=== PATIENT | female | born 1990 | race Caucasian/White ===

== ENCOUNTER 2017-04-19 19:36 | Inpatient (IN) | payer BC ==
[2017-04-19] MEDS ORDERED: Carboprost Tromethamine 250 MCG/1 ML Amp IM PRN (20:07)
[2017-04-19] MEDS ORDERED: Lidocaine 1% 50 ML MDV INJECT PRN (20:07)
[2017-04-19] MEDS ORDERED: Sodium Chloride 0.9% 2.5 ML Syringe FLUSH PRN (20:07)
[2017-04-19] MEDS ORDERED: Butorphanol 1 MG/ML SDV IVPUSH PRN (20:07)
[2017-04-19] MEDS ORDERED: Sodium Chloride 0.9% 10 ML Syringe FLUSH PRN (20:07)
[2017-04-19] MEDS ORDERED: Nalbuphine 10 MG/1 ML Vial IVPUSH PRN (20:07)
[2017-04-19] MEDS ORDERED: Misoprostol 200 MCG Tab PO PRN (20:07)
[2017-04-19] MEDS ORDERED: Misoprostol 25 MCG (1/4 of 100 MCG) Tab VAG PRN (20:07)
[2017-04-19] MEDS ORDERED: Water For Irrigation,Sterile 1,000 ML Container IRR PRN (20:07)
[2017-04-19] MEDS ORDERED: Terbutaline 1 MG/ML SDV SUBCUT PRN (20:07)
[2017-04-19] MEDS ORDERED: Methylergonovine 0.2 MG/1 ML Amp IM PRN (20:07)
[2017-04-19] MEDS: Lactated Ringers 1,000 ML IV SCH (20:15)
[2017-04-19] MEDS ORDERED: Misoprostol 25 MCG (1/4 of 100 MCG) Tab VAG SCH (20:15)
[2017-04-19] MEDS ORDERED: Oxytocin/Lactated Ringers 30 UNIT/500 ML BAG IV SCH ×2 (20:15)
[2017-04-20] MEDS: Lactated Ringers 1,000 ML IV SCH ×3 (02:37→09:04)
--- NOTE | 2017-04-20 03:04 | PCM.PREANE ---
Preanesthetic Assessment - Anesthesia/Transfusion/Family Hx Anesthesia History: Prior Anesthesia Without Reaction Transfusion History: No Prior Transfusion(s) - Review of Systems General: No Symptoms Pulmonary: No Symptoms Cardiovascular: No Symptoms Gastrointestinal: No Symptoms Neurological: No Symptoms Other: Reports: None - Physical Assessment Height: 5 ft 2 in Weight: 65.317 kg ASA Class: 2 Mental Status: Alert & Oriented x3 Airway Class: Mallampati = 2 Dentition: Reports: Normal Dentition Thyro-Mental Finger Breadths: 3 Mouth Opening Finger Breadths: 3 ROM/Head Extension: Full Lungs: Clear to Auscultation, Normal Respiratory Effort Cardiovascular: Regular Rate, Regular Rhythm - Lab Values: Laboratory Last Values WBC 16.55 K/uL (4.0-11.0) H 04/19/17 20:25 RBC 3.75 M/uL (4.30-5.90) L 04/19/17 20:25 Hgb 11.0 g/dL (12.0-16.0) L 04/19/17 20:25 Hct 33.6 % (36.0-46.0) L 04/19/17 20:25 MCV 89.6 fL (80.0-98.0) 04/19/17 20:25 MCH 29.3 pg (27.0-32.0) 04/19/17 20:25 MCHC 32.7 g/dL (31.0-37.0) 04/19/17 20:25 RDW Std Deviation 44.4 fl (28.0-62.0) 04/19/17 20:25 RDW Coeff of Elizabeth 14 % (11.0-15.0) 04/19/17 20:25 Plt Count 297 K/uL (150-400) 04/19/17 20:25 MPV 10.50 fL (7.40-12.00) 04/19/17 20:25 Nucleated RBC % 0.0 /100WBC 04/19/17 20:25 Nucleated RBCs # 0 K/uL 04/19/17 20:25 Blood Type O POSITIVE 04/19/17 20:25 Antibody Screen NEGATIVE 04/19/17 20:25 - Allergies Allergies/Adverse Reactions: Allergies Allergy/AdvReac Type Severity Reaction Status Date / Time No Known Allergies Allergy Verified 04/19/17 21:26 - Acknowledgements Anesthesia Type Planned: Epidural Pt an Appropriate Candidate for the Planned Anesthesia: Yes Alternatives and Risks of Anesthesia Discussed w Pt/Guardian: Yes Pt/Guardian Understands and Agrees with Anesthesia Plan: Yes PreAnesthesia Questionnaire - Past Health History Medical/Surgical History: Denies Medical/Surgical History HEENT History: Reports: None Cardiovascular History: Reports: None Respiratory History: Reports: None Gastrointestinal History: Reports: GERD Genitourinary History: Reports: None 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: : 1 Para: 0 LMP (Approximate): Musculoskeletal History: Reports: None Neurological History: Reports: None Psychiatric History: Reports: None Endocrine/Metabolic History: Reports: None Hematologic History: Reports: None Immunologic History: Reports: None Oncologic (Cancer) History: Reports: None Dermatologic History: Reports: None - Infectious Disease History Infectious Disease History: Reports: None - SUBSTANCE USE Smoking Status *Q: Never Smoker Recreational Drug Use History: No - CURRENT (IN HOUSE) MEDS Current Meds: Current Medications Butorphanol Tartrate (Stadol) 1 mg IVPUSH ASDIRECTED PRN PRN Reason: Pain Carboprost Tromethamine (Hemabate Ds) 250 mcg IM ASDIRECTED PRN PRN Reason: Post Hemorrhage Lactated Ringer's (Ringers, Lactated) 1,000 mls @ 150 mls/hr IV ASDIRECTED PEDRO LUIS Last Admin: 04/20/17 02:37 Dose: 150 mls/hr Oxytocin/Lactated Ringer's (Pitocin In Lr 30 Units/500 Ml) 30 unit in 500 mls @ 2 mls/hr IV TITRATE PEDRO LUIS; 2 MUNITS/MIN PRN Reason: Protocol Last Titration: 04/20/17 02:48 Dose: 2 munits/min, 2 mls/hr Lidocaine HCl (Xylocaine 1%) 50 ml INJECT .ONCE PRN PRN Reason: Laceration repair Methylergonovine Maleate (Methergine) 0.2 mg IM ASDIRECTED PRN PRN Reason: Post Hemorrhage Misoprostol (Cytotec) 200 mcg PO .ONCE PRN PRN Reason: Post Hemorrhage Misoprostol (Cytotec) 25 mcg VAG .ONCE PEDRO LUIS Misoprostol (Cytotec) 25 mcg VAG Q4H PRN PRN Reason: Cervical Ripening Stop: 04/21/17 00:08 Nalbuphine HCl (Nubain) 10 mg IVPUSH ASDIRECTED PRN PRN Reason: Pain (severe 7-10) Stop: 04/21/17 20:08 Sodium Chloride (Saline Flush) 10 ml FLUSH ASDIRECTED PRN PRN Reason: Keep Vein Open Sodium Chloride (Saline Flush) 2.5 ml FLUSH ASDIRECTED PRN PRN Reason: Keep Vein Open Sterile Water (Sterile Water For Irrigation) 1,000 ml IRR ASDIRECTED PRN PRN Reason: delivery Terbutaline Sulfate (Brethine) 0.25 mg SUBCUT ASDIRECTED PRN PRN Reason: Tacysystole Discontinued Medications Oxytocin/Lactated Ringer's (Pitocin In Lr 30 Units/500 Ml) 30 unit in 500 mls @ 999 mls/hr IV ASDIRECTED PEDRO LUIS PRN Reason: 999 MUNITS/MIN Stop: 04/19/17 20:46
[2017-04-20] MEDS ORDERED: fentaNYL 100 MCG/2 ML SDV ONE ×4 (03:09→11:44)
[2017-04-20] MEDS ORDERED: Ropivacaine HCl/PF 100 ML ONE (03:09)
[2017-04-20] MEDS ORDERED: Citric Acid/Sodium Citrate Solution 30 ML Cup PO ONE (10:43)
[2017-04-20] MEDS ORDERED: Bupivacaine 0.5% 10 ML SDV ONE (10:46)
[2017-04-20] MEDS ORDERED: Oxytocin 10 Units/1 ML SDV ONE (10:59)
[2017-04-20] MEDS ORDERED: Sodium Chloride 0.9% 20 ML ONE (11:01)
[2017-04-20] MEDS ORDERED: ceFAZolin 1 GM Vial ONE (11:01)
[2017-04-20] MEDS ORDERED: Midazolam 1 MG/ML 2 ML SDV ONE (11:05)
[2017-04-20] MEDS ORDERED: Propofol 200 MG/20 ML SDV ONE (11:06)
[2017-04-20] MEDS ORDERED: Ondansetron 4 MG/2 ML SDV ONE (11:14)
[2017-04-20] MEDS ORDERED: Morphine PF 10 MG/10 ML SDV ONE (11:25)
[2017-04-20] MEDS ORDERED: Methylergonovine 0.2 MG/1 ML Amp ONE (11:28)
[2017-04-20] MEDS ORDERED: Acetaminophen/oxyCODONE 325-5 MG Tab PO PRN ×2 (11:29→13:24)
[2017-04-20] MEDS ORDERED: Nalbuphine 10 MG/1 ML Vial IVPUSH PRN (11:29)
[2017-04-20] MEDS ORDERED: fentaNYL 100 MCG/2 ML SDV IVPUSH PRN (11:29)
[2017-04-20] MEDS ORDERED: Acetaminophen 1,000 MG in Premix Bag 1 BAG IV ONE (12:30)
[2017-04-20] MEDS ORDERED: Naloxone 0.4 MG/ML Syringe IVPUSH PRN (12:54)
[2017-04-20] MEDS ORDERED: Lanolin 100% Cream 7 GM Tube TOP PRN (13:24)
[2017-04-20] MEDS ORDERED: diphenhydrAMINE 50 MG/ML SDV IVPUSH PRN (13:24)
[2017-04-20] MEDS ORDERED: Bisacodyl 10 MG Supp RECTAL PRN (13:24)
[2017-04-20] MEDS ORDERED: Ondansetron 4 MG/2 ML SDV IV PRN (13:24)
[2017-04-20] MEDS ORDERED: Lactated Ringers 1,000 ML IV SCH (13:30)
[2017-04-20] MEDS: Ketorolac 30 MG/ML SDV IVPUSH SCH ×2 (13:57→19:33)
--- NOTE | 2017-04-20 14:39 | PCM.PNPP ---
- General Info Date of Service: 04/20/17 Admission Dx/Problem (Free Text): 26 yo P1 s/p primary for Arrest of Dilatation Subjective Update: Denies any complains , has good pain control Temp; 100.6 @ 230 - Patient Data Vital Signs - Most Recent: Last Vital Signs Temp 37 C 04/20/17 12:30 Pulse 92 04/20/17 13:05 Resp 9 L 04/20/17 13:05 BP 136/76 04/20/17 13:05 Pulse Ox 94 L 04/20/17 13:05 Weight - Most Recent: 65.317 kg I&O - Last 24 Hours: Intake & Output 04/19/17 04/20/17 04/20/17 22:59 06:59 14:59 Intake Total 1250 Output Total 250 Balance 1000 Lab Results - Last 24 Hours: Laboratory Results - last 24 hr 04/19/17 04/19/17 Range/Units 20:25 20:25 WBC 16.55 H (4.0-11.0) K/uL RBC 3.75 L (4.30-5.90) M/uL Hgb 11.0 L (12.0-16.0) g/dL Hct 33.6 L (36.0-46.0) % MCV 89.6 (80.0-98.0) fL MCH 29.3 (27.0-32.0) pg MCHC 32.7 (31.0-37.0) g/dL RDW Std Deviation 44.4 (28.0-62.0) fl RDW Coeff of Elizabeth 14 (11.0-15.0) % Plt Count 297 (150-400) K/uL MPV 10.50 (7.40-12.00) fL Nucleated RBC % 0.0 /100WBC Nucleated RBCs # 0 K/uL Blood Type O POSITIVE Antibody Screen NEGATIVE Med Orders - Current: Current Medications Bisacodyl (Dulcolax) 10 mg RECTAL .ONCE PRN PRN Reason: Constipation Butorphanol Tartrate (Stadol) 1 mg IVPUSH ASDIRECTED PRN PRN Reason: Pain Last Admin: 04/20/17 02:20 Dose: 1 mg Carboprost Tromethamine (Hemabate Ds) 250 mcg IM ASDIRECTED PRN PRN Reason: Post Hemorrhage Diphenhydramine HCl (Benadryl) 25 mg IVPUSH Q6H PRN PRN Reason: Itching or Nausea Docusate Sodium (Colace) 100 mg PO BID [facility] Emollient Ointment (Lansinoh Hpa) 0 gm TOP ASDIRECTED PRN PRN Reason: Sore Nipples Fentanyl (Sublimaze) 50 mcg IVPUSH Q5M PRN PRN Reason: Pain (severe 7-10) Stop: 04/21/17 11:30 Lactated Ringer's (Ringers, Lactated) 1,000 mls @ 150 mls/hr IV ASDIRECTED [facility] Last Admin: 04/20/17 09:04 Dose: 150 mls/hr Oxytocin/Lactated Ringer's (Pitocin In Lr 30 Units/500 Ml) 30 unit in 500 mls @ 2 mls/hr IV TITRATE PEDRO LUIS; 2 MUNITS/MIN PRN Reason: Protocol Last Titration: 04/20/17 08:43 Dose: 4 munits/min, 4 mls/hr Lactated Ringer's (Ringers, Lactated) 1,000 mls @ 125 mls/hr IV ASDIRECTED [facility] Ampicillin Sodium/Sulbactam (Sodium 3 gm/ Sodium Chloride) 100 mls @ 200 mls/ hr IV Q6H [facility] Stop: 04/21/17 14:45 Ibuprofen (Motrin) 800 mg PO Q8H PRN PRN Reason: mild pain or fever Ketorolac Tromethamine (Toradol) 30 mg IVPUSH Q6H [facility] Stop: 04/21/17 13:31 Last Admin: 04/20/17 13:57 Dose: 30 mg Lidocaine HCl (Xylocaine 1%) 50 ml INJECT .ONCE PRN PRN Reason: Laceration repair Methylergonovine Maleate (Methergine) 0.2 mg IM ASDIRECTED PRN PRN Reason: Post Hemorrhage Misoprostol (Cytotec) 200 mcg PO .ONCE PRN PRN Reason: Post Hemorrhage Misoprostol (Cytotec) 25 mcg VAG .ONCE PEDRO LUIS Misoprostol (Cytotec) 25 mcg VAG Q4H PRN PRN Reason: Cervical Ripening Stop: 04/21/17 00:08 Nalbuphine HCl (Nubain) 10 mg IVPUSH ASDIRECTED PRN PRN Reason: Pain (severe 7-10) Stop: 04/21/17 20:08 Nalbuphine HCl (Nubain) 5 mg IVPUSH Q3H PRN PRN Reason: Pruritis Stop: 04/21/17 11:30 Naloxone HCl (Narcan) 0.4 mg IVPUSH ONETIME PRN PRN Reason: Respiratory Depression Ondansetron HCl (Zofran) 4 mg IV Q4H PRN PRN Reason: Nausea/Vomiting Oxycodone/Acetaminophen (Percocet 325-5 Mg) 1 tab PO ONETIME PRN PRN Reason: Pain (moderate 4-6) Oxycodone/Acetaminophen (Percocet 325-5 Mg) 2 tab PO Q4H PRN PRN Reason: Pain (moderate 4-6) Sodium Chloride (Saline Flush) 10 ml FLUSH ASDIRECTED PRN PRN Reason: Keep Vein Open Sodium Chloride (Saline Flush) 2.5 ml FLUSH ASDIRECTED PRN PRN Reason: Keep Vein Open Sterile Water (Sterile Water For Irrigation) 1,000 ml IRR ASDIRECTED PRN PRN Reason: delivery Terbutaline Sulfate (Brethine) 0.25 mg SUBCUT ASDIRECTED PRN PRN Reason: Tacysystole Discontinued Medications Bupivacaine HCl (Sensorcaine-Mpf 0.5%) Confirm Administered Dose 20 ml .ROUTE .STK-MED ONE Stop: 04/20/17 10:47 Last Admin: 04/20/17 12:04 Dose: Not Given Cefazolin Sodium (Ancef) Confirm Administered Dose 1 gm .ROUTE .STK-MED ONE Stop: 04/20/17 11:02 Citric Acid/Sodium Citrate (Bicitra Solution) 30 ml PO ONETIME ONE Stop: 04/20/17 10:44 Last Admin: 04/20/17 10:52 Dose: 30 ml Fentanyl (Sublimaze) Confirm Administered Dose 100 mcg .ROUTE .STK-MED ONE Stop: 04/20/17 03:10 Last Admin: 04/20/17 08:17 Dose: Not Given Fentanyl (Sublimaze) Confirm Administered Dose 100 mcg .ROUTE .STK-MED ONE Stop: 04/20/17 11:06 Fentanyl (Sublimaze) Confirm Administered Dose 100 mcg .ROUTE .STK-MED ONE Stop: 04/20/17 11:24 Fentanyl (Sublimaze) Confirm Administered Dose 100 mcg .ROUTE .STK-MED ONE Stop: 04/20/17 11:45 Oxytocin/Lactated Ringer's (Pitocin In Lr 30 Units/500 Ml) 30 unit in 500 mls @ 999 mls/hr IV ASDIRECTED PEDRO LUIS PRN Reason: 999 MUNITS/MIN Stop: 04/19/17 20:46 Last Admin: 04/20/17 12:03 Dose: Not Given Ropivacaine (Naropin 0.2%) Confirm Administered Dose 100 mls @ as directed .ROUTE .STK-MED ONE Stop: 04/20/17 03:10 Last Admin: 04/20/17 08:17 Dose: Not Given Sodium Chloride (Normal Saline) Confirm Administered Dose 20 mls @ as directed .ROUTE .STK-MED ONE Stop: 04/20/17 11:02 Acetaminophen 1,000 mg/ Premix 100 mls @ 400 mls/hr IV NOW ONE Stop: 04/20/17 12:44 Last Admin: 04/20/17 12:54 Dose: Not Given Acetaminophen (Ofirmev) Confirm Administered Dose 100 mls @ as directed IV .STK- MED ONE Stop: 04/20/17 12:19 Methylergonovine Maleate (Methergine) Confirm Administered Dose 0.2 mg .ROUTE .STK-MED ONE Stop: 04/20/17 11:29 Midazolam HCl (Versed 1 Mg/Ml) Confirm Administered Dose 2 mg .ROUTE .STK-MED ONE Stop: 04/20/17 11:06 Morphine Sulfate (Duramorph Pf) Confirm Administered Dose 10 mg .ROUTE .STK-MED ONE Stop: 04/20/17 11:26 Ondansetron HCl (Zofran) Confirm Administered Dose 4 mg .ROUTE .STK-MED ONE Stop: 04/20/17 11:15 Oxytocin (Pitocin) Confirm Administered Dose 20 unit .ROUTE .STK-MED ONE Stop: 04/20/17 11:00 Propofol (Diprivan 20 Ml) Confirm Administered Dose 200 mg .ROUTE .STK-MED ONE Stop: 04/20/17 11:07 - Infant Interaction Support Person: - Recovery Exam Lochia Amount: Scant Lochia Color: Rubra/Red Perineum Description: Edematous - Problem List & Annotations (1) delivery delivered SNOMED Code(s): 450640254 Code(s): O82 - ENCOUNTER FOR DELIVERY WITHOUT INDICATION Status: Acute Priority: Low Current Visit: Yes Onset Date: ~04/20/17 - Problem List Review Problem List Initiated/Reviewed/Updated: Yes - My Orders Last 24 Hours: My Active Orders 04/19/17 20:07 Patient Status [ADT] Routine Communication Order [RC] ASDIRECTED Communication Order [RC] ASDIRECTED Communication Order [RC] ASDIRECTED May Shower [RC] ASDIRECTED Notify Provider [RC] PRN Notify Provider [RC] PRN Notify Provider [RC] PRN Oxygen Therapy [RC] ASDIRECTED Up ad Helen [RC] ASDIRECTED Vital Signs [RC] PER UNIT ROUTINE Butorphanol [Stadol] 1 mg IVPUSH ASDIRECTED PRN Carboprost Tromethamine [Hemabate DS] 250 mcg IM ASDIRECTED PRN Lidocaine 1% [Xylocaine 1%] 50 ml INJECT .ONCE PRN Methylergonovine [Methergine] 0.2 mg IM ASDIRECTED PRN Misoprostol [Cytotec] 200 mcg PO .ONCE PRN Misoprostol [Cytotec] 25 mcg VAG Q4H PRN Nalbuphine [Nubain] 10 mg IVPUSH ASDIRECTED PRN Sodium Chloride 0.9% [Saline Flush] 10 ml FLUSH ASDIRECTED PRN Sodium Chloride 0.9% [Saline Flush] 2.5 ml FLUSH ASDIRECTED PRN Terbutaline [Brethine] 0.25 mg SUBCUT ASDIRECTED PRN Water For Irrigation,Sterile [Sterile Water for Irrigation] 1,000 ml IRR ASDIRECTED PRN Scalp Electrode [WOMSER] Per Unit Routine Peripheral IV Insertion Adult [OM.PC] Routine 04/19/17 20:15 Lactated Ringers [Ringers, Lactated] 1,000 ml IV ASDIRECTED Misoprostol [Cytotec] 25 mcg VAG .ONCE Oxytocin/Lactated Ringers [Pitocin in LR 30 Units/500 ML] 30 unit in 500 ml IV TITRATE Medication Administration Instruction [OM.PC] Q3H 04/20/17 13:24 Notify Provider Intake and Out [RC] ASDIRECTED Notify Provider Vital Signs [RC] ASDIRECTED Acetaminophen/oxyCODONE [Percocet 325-5 MG] 2 tab PO Q4H PRN Bisacodyl [Dulcolax] 10 mg RECTAL .ONCE PRN Ibuprofen [Motrin] 800 mg PO Q8H PRN Lanolin [Lansinoh HPA] See Dose Instructions TOP ASDIRECTED PRN Ondansetron [Zofran] 4 mg IV Q4H PRN diphenhydrAMINE [Benadryl] 25 mg IVPUSH Q6H PRN Resuscitation Status Routine 04/20/17 13:25 Ambulate [RC] PER UNIT ROUTINE Antiembolic Devices [RC] PER UNIT ROUTINE Communication Order [RC] PER UNIT ROUTINE Communication Order [RC] PER UNIT ROUTINE Communication Order [RC] Per Unit Routine May Shower [RC] ASDIRECTED RT Incentive Spirometry [RC] Q2HWA Vital Signs [RC] PER UNIT ROUTINE Assess Lochia [WOMSER] Per Unit Routine Assess Uterine Involution [WOMSER] Per Unit Routine Breast Pump [WOMSER] Per Unit Routine Peripheral IV Discontinue [OM.PC] Routine Sequential Compression Device [OM.PC] Per Unit Routine 04/20/17 13:30 Ketorolac [Toradol] 30 mg IVPUSH Q6H Lactated Ringers [Ringers, Lactated] 1,000 ml IV ASDIRECTED 04/20/17 14:45 Ampicillin/Sulbactam Na [Unasyn] 3 gm Sodium Chloride 0.9% [Normal Saline] 100 ml IV Q6H 04/20/17 21:00 Docusate Sodium [Colace] 100 mg PO BID 04/20/17 Breakfast Clear Liquid Diet [DIET] 04/20/17 Dinner Regular Diet [DIET] 04/21/17 05:11 HEMOGLOBIN/HEMATOCRIT,HH [HEME] Timed - Assessment Assessment:: 26 yo P0D 0 , s/p Primary LTCS - with Fever 100.6 Plan: Unasyn for 24 hrs VSS Pain control
[2017-04-20] MEDS: Ampicillin/Sulbactam Na 3 GM in Sodium Chloride 0.9% 100 ML IV SCH ×2 (15:26→21:00)
[2017-04-21] MEDS: Ketorolac 30 MG/ML SDV IVPUSH SCH ×3 (01:30→14:02)
--- NOTE | 2017-04-21 01:58 | PCM.SN ---
- Free Text/Narrative Note: Informed by nurse that patient dressing is soaked. Patient seen at bedside she is Dressing inspected moderately soaked ( bloody), complete dressing removed with steristrips and new dressing placed Incision examined for any disharge from incision. No discharge noted. Firm dressing reapplied.
[2017-04-21] MEDS: Ampicillin/Sulbactam Na 3 GM in Sodium Chloride 0.9% 100 ML IV SCH (03:07)
[2017-04-21 05:25] LABS: CHLORIDE,CL 108 mmol/L (98-110); SODIUM,NA 139 mmol/L (136-146)
[2017-04-21] MEDS: Docusate Sodium 100 MG Cap PO SCH (08:59)
[2017-04-21] MEDS ORDERED: Ampicillin/Sulbactam Na 3 GM in Sodium Chloride 0.9% 100 ML IV SCH (09:15)
--- NOTE | 2017-04-21 11:30 | PCM.POSTAN ---
POST ANESTHESIA ASSESSMENT - MENTAL STATUS Mental Status: Alert, Oriented - RESPIRATORY Respiratory Status: Respiratory Rate WNL, Airway Patent, O2 Saturation Stable - CARDIOVASCULAR CV Status: Pulse Rate WNL, Blood Pressure Stable - GASTROINTESTINAL GI Status: No Symptoms - PAIN Pain Score: 1 - POST OP HYDRATION Hydration Status: Adequate & Stable
--- NOTE | 2017-04-21 11:30 | PCM48HPAN ---
Post Anesthesia Note - EVALUATION WITHIN 48HRS OF ANESTHETIC Vital Signs in Normal Range: Yes Patient Participated in Evaluation: Yes Respiratory Function Stable: Yes Airway Patent: Yes Cardiovascular Function Stable: Yes Hydration Status Stable: Yes Pain Control Satisfactory: Yes Nausea and Vomiting Control Satisfactory: Yes Mental Status Recovered: Yes
--- NOTE | 2017-04-21 11:50 | PCM.PNPP ---
- General Info Date of Service: 04/21/17 Admission Dx/Problem (Free Text): 26 uo P1 s/p [facility] for Arrest of Dilatation Subjective Update: Patient seen at bedside , denies any complains this morning. Patient is ambulating , Has good pain control Voiding and tolerating regular diet. I/O= 2240/1625 H/H:- 7.6/23.0 , BMP;- 139/3.9 ; 108/26;7/0.6 Functional Status: Reports: Pain Controlled, Tolerating Diet, Ambulating, Urinating - Review of Systems General: Reports: No Symptoms HEENT: Reports: No Symptoms Pulmonary: Reports: No Symptoms Cardiovascular: Reports: No Symptoms Gastrointestinal: Reports: No Symptoms Genitourinary: Reports: No Symptoms Musculoskeletal: Reports: No Symptoms Skin: Reports: No Symptoms Neurological: Reports: No Symptoms Psychiatric: Reports: No Symptoms - General Info Date of Service: 04/21/17 - Patient Data Vital Signs - Most Recent: Last Vital Signs Temp 37.1 C 04/21/17 04:00 Pulse 98 04/21/17 09:59 Resp 18 04/21/17 11:00 BP 117/64 04/21/17 09:59 Pulse Ox 99 04/21/17 11:00 Weight - Most Recent: 65.317 kg I&O - Last 24 Hours: Intake & Output 04/20/17 04/21/17 04/21/17 22:59 06:59 14:59 Intake Total 240 750 Output Total 275 1100 850 Balance -35 -350 -850 Lab Results - Last 24 Hours: Laboratory Results - last 24 hr 04/21/17 04/21/17 Range/Units 04:45 04:45 Hgb 7.6 L (12.0-16.0) g/dL Hct 23.0 L (36.0-46.0) % Sodium 139 (136-146) mmol/L Potassium 3.9 (3.5-5.1) mmol/L Chloride 108 (98-110) mmol/L Carbon Dioxide 26 (21-31) mmol/L BUN 7 (6.0-23.0) mg/dL Creatinine 0.6 (0.6-1.5) mg/dL Est Cr Clr Drug Dosing 111.39 mL/min Estimated GFR (MDRD) > 60.0 ml/min Glucose 78 (60-110) mg/dL Calcium 7.7 L (8.8-10.8) mg/dL Med Orders - Current: Current Medications Bisacodyl (Dulcolax) 10 mg RECTAL .ONCE PRN PRN Reason: Constipation Diphenhydramine HCl (Benadryl) 25 mg IVPUSH Q6H PRN PRN Reason: Itching or Nausea Docusate Sodium (Colace) 100 mg PO BID [facility] Last Admin: 04/21/17 08:59 Dose: 100 mg Emollient Ointment (Lansinoh Hpa) 0 gm TOP ASDIRECTED PRN PRN Reason: Sore Nipples Oxytocin/Lactated Ringer's (Pitocin In Lr 30 Units/500 Ml) 30 unit in 500 mls @ 2 mls/hr IV TITRATE [facility]EDRO LU[facility]; 2 MUNITS/MIN PRN Reason: Protocol Last Titration: 04/20/17 08:43 Dose: 4 munits/min, 4 mls/hr Lactated Ringer's (Ringers, Lactated) 1,000 mls @ 125 mls/hr IV ASDIRECTED [facility] Last Admin: 04/21/17 09:02 Dose: 125 mls/hr Ibuprofen (Motrin) 800 mg PO Q8H PRN PRN Reason: mild pain or fever Ketorolac Tromethamine (Toradol) 30 mg IVPUSH Q6H [facility] Stop: 04/21/17 13:31 Last Admin: 04/21/17 07:31 Dose: 30 mg Misoprostol (Cytotec) 25 mcg VAG .ONCE PEDRO LUIS Naloxone HCl (Narcan) 0.4 mg IVPUSH ONETIME PRN PRN Reason: Respiratory Depression Ondansetron HCl (Zofran) 4 mg IV Q4H PRN PRN Reason: Nausea/Vomiting Oxycodone/Acetaminophen (Percocet 325-5 Mg) 1 tab PO ONETIME PRN PRN Reason: Pain (moderate 4-6) Oxycodone/Acetaminophen (Percocet 325-5 Mg) 2 tab PO Q4H PRN PRN Reason: Pain (moderate 4-6) Sodium Chloride (Saline Flush) 10 ml FLUSH ASDIRECTED PRN PRN Reason: Keep Vein Open Sodium Chloride (Saline Flush) 2.5 ml FLUSH ASDIRECTED PRN PRN Reason: Keep Vein Open Terbutaline Sulfate (Brethine) 0.25 mg SUBCUT ASDIRECTED PRN PRN Reason: Tacysystole Discontinued Medications Bupivacaine HCl (Sensorcaine-Mpf 0.5%) Confirm Administered Dose 20 ml .ROUTE .STK-MED ONE Stop: 04/20/17 10:47 Last Admin: 04/20/17 12:04 Dose: Not Given Butorphanol Tartrate (Stadol) 1 mg IVPUSH ASDIRECTED PRN PRN Reason: Pain Last Admin: 04/20/17 02:20 Dose: 1 mg Carboprost Tromethamine (Hemabate Ds) 250 mcg IM ASDIRECTED PRN PRN Reason: Post Hemorrhage Cefazolin Sodium (Ancef) Confirm Administered Dose 1 gm .ROUTE .STK-MED ONE Stop: 04/20/17 11:02 Citric Acid/Sodium Citrate (Bicitra Solution) 30 ml PO ONETIME ONE Stop: 04/20/17 10:44 Last Admin: 04/20/17 10:52 Dose: 30 ml Fentanyl (Sublimaze) Confirm Administered Dose 100 mcg .ROUTE .STK-MED ONE Stop: 04/20/17 03:10 Last Admin: 04/20/17 08:17 Dose: Not Given Fentanyl (Sublimaze) Confirm Administered Dose 100 mcg .ROUTE .STK-MED ONE Stop: 04/20/17 11:06 Fentanyl (Sublimaze) Confirm Administered Dose 100 mcg .ROUTE .STK-MED ONE Stop: 04/20/17 11:24 Fentanyl (Sublimaze) 50 mcg IVPUSH Q5M PRN PRN Reason: Pain (severe 7-10) Stop: 04/21/17 11:30 Fentanyl (Sublimaze) Confirm Administered Dose 100 mcg .ROUTE .STK-MED ONE Stop: 04/20/17 11:45 Lactated Ringer's (Ringers, Lactated) 1,000 mls @ 150 mls/hr IV ASDIRECTED [facility] Last Admin: 04/20/17 09:04 Dose: 150 mls/hr Oxytocin/Lactated Ringer's (Pitocin In Lr 30 Units/500 Ml) 30 unit in 500 mls @ 999 mls/hr IV ASDIRECTED [facility] PRN Reason: 999 MUNITS/MIN Stop: 04/19/17 20:46 Last Admin: 04/20/17 12:03 Dose: Not Given Ropivacaine (Naropin 0.2%) Confirm Administered Dose 100 mls @ as directed .ROUTE .STK-MED ONE Stop: 04/20/17 03:10 Last Admin: 04/20/17 08:17 Dose: Not Given Sodium Chloride (Normal Saline) Confirm Administered Dose 20 mls @ as directed .ROUTE .STK-MED ONE Stop: 04/20/17 11:02 Acetaminophen 1,000 mg/ Premix 100 mls @ 400 mls/hr IV NOW ONE Stop: 04/20/17 12:44 Last Admin: 04/20/17 12:54 Dose: Not Given Acetaminophen (Ofirmev) Confirm Administered Dose 100 mls @ as directed IV .STK- MED ONE Stop: 04/20/17 12:19 Ampicillin Sodium/Sulbactam (Sodium 3 gm/ Sodium Chloride) 100 mls @ 200 mls/ hr IV Q6H [facility] Stop: 04/21/17 15:01 Last Admin: 04/21/17 03:07 Dose: 200 mls/hr Ampicillin Sodium/Sulbactam (Sodium 3 gm/ Sodium Chloride) 100 mls @ 200 mls/ hr IV Q6H [facility] Stop: 04/21/17 09:44 Last Admin: 04/21/17 09:12 Dose: 200 mls/hr Lidocaine HCl (Xylocaine 1%) 50 ml INJECT .ONCE PRN PRN Reason: Laceration repair Methylergonovine Maleate (Methergine) 0.2 mg IM ASDIRECTED PRN PRN Reason: Post Hemorrhage Methylergonovine Maleate (Methergine) Confirm Administered Dose 0.2 mg .ROUTE .STK-MED ONE Stop: 04/20/17 11:29 Midazolam HCl (Versed 1 Mg/Ml) Confirm Administered Dose 2 mg .ROUTE .STK-MED ONE Stop: 04/20/17 11:06 Misoprostol (Cytotec) 200 mcg PO .ONCE PRN PRN Reason: Post Hemorrhage Misoprostol (Cytotec) 25 mcg VAG Q4H PRN PRN Reason: Cervical Ripening Stop: 04/21/17 00:08 Morphine Sulfate (Duramorph Pf) Confirm Administered Dose 10 mg .ROUTE .STK-MED ONE Stop: 04/20/17 11:26 Nalbuphine HCl (Nubain) 10 mg IVPUSH ASDIRECTED PRN PRN Reason: Pain (severe 7-10) Stop: 04/21/17 20:08 Nalbuphine HCl (Nubain) 5 mg IVPUSH Q3H PRN PRN Reason: Pruritis Stop: 04/21/17 11:30 Ondansetron HCl (Zofran) Confirm Administered Dose 4 mg .ROUTE .STK-MED ONE Stop: 04/20/17 11:15 Oxytocin (Pitocin) Confirm Administered Dose 20 unit .ROUTE .STK-MED ONE Stop: 04/20/17 11:00 Propofol (Diprivan 20 Ml) Confirm Administered Dose 200 mg .ROUTE .STK-MED ONE Stop: 04/20/17 11:07 Sterile Water (Sterile Water For Irrigation) 1,000 ml IRR ASDIRECTED PRN PRN Reason: delivery - Interaction Infant Feeding: Breastfed ; Nursed Well Support Person: - Recovery Exam Fundal Tone: Firm Fundal Level: 1 Fingerbreadths Below Umbilicus Fundal Placement: Midline Lochia Amount: Small Lochia Color: Rubra/Red Perineum Description: Intact, Minimal Bruising/Swelling Episiotomy/Laceration: Approximated Bladder Status: Voiding Urinary Elimination: Indwelling Catheter - Exam General: Alert Lungs: Clear to Auscultation Cardiovascular: Regular Rate, Regular Rhythm GI/Abdominal Exam: Normal Bowel Sounds, Soft, No Distention, Other (Pfannestiel skin incision with wound dressing in place , clean , dry and intact . Uterus is firm and contracted about 20 week , minimal lochia ) Extremities: No Pedal Edema Wound/Incisions: No Drainage - Problem List & Annotations (1) delivery delivered SNOMED Code(s): 493871398 Code(s): O82 - ENCOUNTER FOR DELIVERY WITHOUT INDICATION Status: Acute Priority: Low Current Visit: Yes Onset Date: ~04/20/17 - Problem List Review Problem List Initiated/Reviewed/Updated: Yes - My Orders Last 24 Hours: My Active Orders 04/20/17 13:24 Notify Provider Intake and Out [RC] ASDIRECTED Notify Provider Vital Signs [RC] ASDIRECTED Acetaminophen/oxyCODONE [Percocet 325-5 MG] 2 tab PO Q4H PRN Bisacodyl [Dulcolax] 10 mg RECTAL .ONCE PRN Ibuprofen [Motrin] 800 mg PO Q8H PRN Lanolin [Lansinoh HPA] See Dose Instructions TOP ASDIRECTED PRN Ondansetron [Zofran] 4 mg IV Q4H PRN diphenhydrAMINE [Benadryl] 25 mg IVPUSH Q6H PRN Resuscitation Status Routine 04/20/17 13:25 Ambulate [RC] PER UNIT ROUTINE Antiembolic Devices [RC] Q8H Communication Order [RC] PER UNIT ROUTINE Communication Order [RC] PER UNIT ROUTINE Communication Order [RC] Per Unit Routine May Shower [RC] ASDIRECTED RT Incentive Spirometry [RC] Q2HWA Vital Signs [RC] PER UNIT ROUTINE Assess Lochia [WOMSER] Per Unit Routine Assess Uterine Involution [WOMSER] Per Unit Routine Breast Pump [WOMSER] Per Unit Routine Peripheral IV Discontinue [OM.PC] Routine Sequential Compression Device [OM.PC] Per Unit Routine 04/20/17 13:30 Ketorolac [Toradol] 30 mg IVPUSH Q6H Lactated Ringers [Ringers, Lactated] 1,000 ml IV ASDIRECTED 04/20/17 21:00 Docusate Sodium [Colace] 100 mg PO BID 04/20/17 Dinner Regular Diet [DIET] - Assessment Assessment:: 26 yo P0D 1 , s/p [facility] POD 1, with Fever of 100.6 > 10 hrs afebrile - stable Plan: Unasyn given for 24 hrs VSS Pain control as needed Encourage ambulation Continue Will remove dressing tomorrow Possible discharge tomorrow - Plan Plan:: as above
[2017-04-21] MEDS: Ibuprofen 800 MG Tab PO PRN (20:17)
[2017-04-21] MEDS ORDERED: Ampicillin 500 MG in Water For Injection, Sterile 17 ML IV SCH (21:45)
[2017-04-21] MEDS ORDERED: Clindamycin Phosphate in D5W 900 MG in Premix Bag 1 BAG IV SCH ×2 (22:00)
--- NOTE | 2017-04-21 22:27 | PCM.SN ---
- Free Text/Narrative Note: Informed by nurse that patient had a temperature of 101 @ 8pm. Patient seen at bedside she denies any problems , denies SOB , cough , she is ambulating , voiding and tolerating regular diet VSS: Temp:- 38.3 , HR ; 122 , Osat:- 98% on room air R;- 19 , BP:- 108/65 EXam;- General;- NAD Chest:- Clear to auscultation Bilaterally Breast: Engorgement of left breast Heart:- S1 S2 no murmurs Abdomen: Pfannestiel skin incision with wound dressing in place c/d/i /, Uterus is firm contracted , non tender . has appropriate incisional tenderness Lochia minimal Extremities; No pedal edema A/P 26yo P1 s/p [facility] for arrest of Dilatation with Postop fever (probably secondary to breast engorgment) 1. Analgesic for symptomatic relief of fever 2. Encourage breast feeding and pumping for engorgment 3. Ampicillin/ Gentamicin and Clindamycin 4. Urine culture , CBC , Blood culture , Chest Xray 5. Pain control PRN 6 Vital signs as per unit protocol
[2017-04-21] MEDS: Clindamycin Phosphate in D5W 900 MG in Premix Bag 1 BAG IV SCH ×2 (23:55)
[2017-04-22] MEDS: Iron Polysaccharides Complex 150 MG Cap PO SCH ×2 (00:39→10:08)
[2017-04-22] MEDS: Ascorbic Acid 500 MG Tab PO SCH ×2 (00:39→10:21)
[2017-04-22] MEDS: Docusate Sodium 100 MG Cap PO SCH ×3 (07:18→22:10)
[2017-04-22] MEDS: Clindamycin Phosphate in D5W 900 MG in Premix Bag 1 BAG IV SCH ×4 (08:13→16:03)
--- NOTE | 2017-04-22 10:09 | PCM.PNPP ---
- General Info Date of Service: 04/22/17 Admission Dx/Problem (Free Text): 26 uo P1 s/p [facility] for Arrest of Dilatation with fever Subjective Update: Patient seen at bedside , denies any complains this morning. Patient is ambulating , Has good pain control Voiding and tolerating regular diet. she has had a bowel movement Patient had a temperature of 101 @ 8.17pm ( 04/21) , no temperature spike since then . Patient with Hb of 7.0 , denies fatigue , dizziness , palpitation , she is ambulating without symptoms. Normal lochia WBC: 16.5 --> 14.34 H/H : 11 --> 7.0 CXR - minimal pleural effusion Functional Status: Reports: Pain Controlled, Tolerating Diet, Ambulating, Urinating - Review of Systems General: Reports: No Symptoms HEENT: Reports: No Symptoms Pulmonary: Reports: No Symptoms Cardiovascular: Reports: No Symptoms Gastrointestinal: Reports: No Symptoms Genitourinary: Reports: No Symptoms Musculoskeletal: Reports: No Symptoms Skin: Reports: No Symptoms Neurological: Reports: No Symptoms Psychiatric: Reports: No Symptoms - General Info Date of Service: 04/22/17 - Patient Data Vital Signs - Most Recent: Last Vital Signs Temp 36.9 C 04/22/17 07:45 Pulse 97 04/22/17 07:30 Resp 17 04/22/17 07:30 BP 109/62 04/22/17 07:30 Pulse Ox 100 04/22/17 07:30 Weight - Most Recent: 65.317 kg Lab Results - Last 24 Hours: Laboratory Results - last 24 hr 04/21/17 Range/Units 21:55 WBC 14.34 H (4.0-11.0) K/uL RBC 2.38 L (4.30-5.90) M/uL Hgb 7.0 L (12.0-16.0) g/dL Hct 21.7 L (36.0-46.0) % MCV 91.2 (80.0-98.0) fL MCH 29.4 (27.0-32.0) pg MCHC 32.3 (31.0-37.0) g/dL RDW Std Deviation 46.8 (28.0-62.0) fl RDW Coeff of Elizabeth 14 (11.0-15.0) % Plt Count 284 (150-400) K/uL MPV 9.80 (7.40-12.00) fL Neut % (Auto) 84.4 H (48.0-80.0) % Lymph % (Auto) 10.6 L (16.0-40.0) % [place] % (Auto) 4.6 (0.0-15.0) % Eos % (Auto) 0.3 (0.0-7.0) % Baso % (Auto) 0.1 (0.0-1.5) % Neut # (Auto) 12.1 H (1.4-5.7) K/uL Lymph # (Auto) 1.5 (0.6-2.4) K/uL [place] # (Auto) 0.7 (0.0-0.8) K/uL Eos # (Auto) 0.1 (0.0-0.7) K/uL Baso # (Auto) 0.0 (0.0-0.1) K/uL Nucleated RBC % 0.5 /100WBC Nucleated RBCs # 0 K/uL Med Orders - Current: Current Medications Ascorbic Acid (Vitamin C) 500 mg PO DAILY [facility] Last Admin: 04/22/17 00:39 Dose: 500 mg Bisacodyl (Dulcolax) 10 mg RECTAL .ONCE PRN PRN Reason: Constipation Diphenhydramine HCl (Benadryl) 25 mg IVPUSH Q6H PRN PRN Reason: Itching or Nausea Docusate Sodium (Colace) 100 mg PO BID [facility] Last Admin: 04/22/17 07:18 Dose: Not Given Emollient Ointment (Lansinoh Hpa) 0 gm TOP ASDIRECTED PRN PRN Reason: Sore Nipples Oxytocin/Lactated Ringer's (Pitocin In Lr 30 Units/500 Ml) 30 unit in 500 mls @ 2 mls/hr IV TITRATE PEDRO LUIS; 2 MUNITS/MIN PRN Reason: Protocol Last Titration: 04/20/17 08:43 Dose: 4 munits/min, 4 mls/hr Lactated Ringer's (Ringers, Lactated) 1,000 mls @ 125 mls/hr IV ASDIRECTED [facility] Last Admin: 04/21/17 09:02 Dose: 125 mls/hr Gentamicin Sulfate 80 mg/ (Sodium Chloride) 52 mls @ 100 mls/hr IV Q8H [facility] Last Admin: 04/22/17 06:52 Dose: 100 mls/hr Clindamycin Phosphate 900 mg/ (Premix) 50 mls @ 100 mls/hr IV Q8H [facility] Last Admin: 04/22/17 08:13 Dose: 100 mls/hr Ampicillin Sodium 500 mg/ (Sodium Chloride) 50 mls @ 100 mls/hr IV Q6H [facility] Ibuprofen (Motrin) 800 mg PO Q8H PRN PRN Reason: mild pain or fever Last Admin: 04/21/17 20:17 Dose: 800 mg Misoprostol (Cytotec) 25 mcg VAG .ONCE [facility] Naloxone HCl (Narcan) 0.4 mg IVPUSH ONETIME PRN PRN Reason: Respiratory Depression Ondansetron HCl (Zofran) 4 mg IV Q4H PRN PRN Reason: Nausea/Vomiting Oxycodone/Acetaminophen (Percocet 325-5 Mg) 1 tab PO ONETIME PRN PRN Reason: Pain (moderate 4-6) Oxycodone/Acetaminophen (Percocet 325-5 Mg) 2 tab PO Q4H PRN PRN Reason: Pain (moderate 4-6) Polysaccharide Iron Complex (Ferrex 150) 150 mg PO DAILY [facility] Last Admin: 04/22/17 00:39 Dose: 150 mg Sodium Chloride (Saline Flush) 10 ml FLUSH ASDIRECTED PRN PRN Reason: Keep Vein Open Sodium Chloride (Saline Flush) 2.5 ml FLUSH ASDIRECTED PRN PRN Reason: Keep Vein Open Terbutaline Sulfate (Brethine) 0.25 mg SUBCUT ASDIRECTED PRN PRN Reason: Tacysystole Discontinued Medications Bupivacaine HCl (Sensorcaine-Mpf 0.5%) Confirm Administered Dose 20 ml .ROUTE .STK-MED ONE Stop: 04/20/17 10:47 Last Admin: 04/20/17 12:04 Dose: Not Given Butorphanol Tartrate (Stadol) 1 mg IVPUSH ASDIRECTED PRN PRN Reason: Pain Last Admin: 04/20/17 02:20 Dose: 1 mg Carboprost Tromethamine (Hemabate Ds) 250 mcg IM ASDIRECTED PRN PRN Reason: Post Hemorrhage Cefazolin Sodium (Ancef) Confirm Administered Dose 1 gm .ROUTE .STK-MED ONE Stop: 04/20/17 11:02 Citric Acid/Sodium Citrate (Bicitra Solution) 30 ml PO ONETIME ONE Stop: 04/20/17 10:44 Last Admin: 04/20/17 10:52 Dose: 30 ml Fentanyl (Sublimaze) Confirm Administered Dose 100 mcg .ROUTE .STK-MED ONE Stop: 04/20/17 03:10 Last Admin: 04/20/17 08:17 Dose: Not Given Fentanyl (Sublimaze) Confirm Administered Dose 100 mcg .ROUTE .STK-MED ONE Stop: 04/20/17 11:06 Fentanyl (Sublimaze) Confirm Administered Dose 100 mcg .ROUTE .STK-MED ONE Stop: 04/20/17 11:24 Fentanyl (Sublimaze) 50 mcg IVPUSH Q5M PRN PRN Reason: Pain (severe 7-10) Stop: 04/21/17 11:30 Fentanyl (Sublimaze) Confirm Administered Dose 100 mcg .ROUTE .STK-MED ONE Stop: 04/20/17 11:45 Lactated Ringer's (Ringers, Lactated) 1,000 mls @ 150 mls/hr IV ASDIRECTED [facility] Last Admin: 04/20/17 09:04 Dose: 150 mls/hr Oxytocin/Lactated Ringer's (Pitocin In Lr 30 Units/500 Ml) 30 unit in 500 mls @ 999 mls/hr IV ASDIRECTED [facility] PRN Reason: 999 MUNITS/MIN Stop: 04/19/17 20:46 Last Admin: 04/20/17 12:03 Dose: Not Given Ropivacaine (Naropin 0.2%) Confirm Administered Dose 100 mls @ as directed .ROUTE .STK-MED ONE Stop: 04/20/17 03:10 Last Admin: 04/20/17 08:17 Dose: Not Given Sodium Chloride (Normal Saline) Confirm Administered Dose 20 mls @ as directed .ROUTE .STK-MED ONE Stop: 04/20/17 11:02 Acetaminophen 1,000 mg/ Premix 100 mls @ 400 mls/hr IV NOW ONE Stop: 04/20/17 12:44 Last Admin: 04/20/17 12:54 Dose: Not Given Acetaminophen (Ofirmev) Confirm Administered Dose 100 mls @ as directed IV .STK- MED ONE Stop: 04/20/17 12:19 Ampicillin Sodium/Sulbactam (Sodium 3 gm/ Sodium Chloride) 100 mls @ 200 mls/ hr IV Q6H [facility] Stop: 04/21/17 15:01 Last Admin: 04/21/17 03:07 Dose: 200 mls/hr Ampicillin Sodium/Sulbactam (Sodium 3 gm/ Sodium Chloride) 100 mls @ 200 mls/ hr IV Q6H [facility] Stop: 04/21/17 09:44 Last Admin: 04/21/17 09:12 Dose: 200 mls/hr Clindamycin Phosphate 900 mg/ (Premix) 50 mls @ 100 mls/hr IV Q8H [facility] Gentamicin Sulfate 80 mg/ (Sodium Chloride) 52 mls @ 100 mls/hr IV Q6H [facility] Ampicillin Sodium 500 mg/ (Sodium Chloride) 50 mls @ 100 mls/hr IV Q6H [facility] Last Admin: 04/21/17 22:47 Dose: 100 mls/hr Gentamicin Sulfate 100 mg/ (Sodium Chloride) 52.5 mls @ 100 mls/hr IV ONETIME ONE Stop: 04/22/17 22:38 Gentamicin Sulfate 100 mg/ (Sodium Chloride) 52.5 mls @ 100 mls/hr IV ONETIME ONE Stop: 04/21/17 23:24 Last Admin: 04/21/17 23:18 Dose: 100 mls/hr Ampicillin Sodium 500 mg/ (Sodium Chloride) 50 mls @ 100 mls/hr IV Q6H [facility] Last Admin: 04/22/17 04:13 Dose: 100 mls/hr Ketorolac Tromethamine (Toradol) 30 mg IVPUSH Q6H [facility] Stop: 04/21/17 13:31 Last Admin: 04/21/17 14:02 Dose: 30 mg Lidocaine HCl (Xylocaine 1%) 50 ml INJECT .ONCE PRN PRN Reason: Laceration repair Methylergonovine Maleate (Methergine) 0.2 mg IM ASDIRECTED PRN PRN Reason: Post Hemorrhage Methylergonovine Maleate (Methergine) Confirm Administered Dose 0.2 mg .ROUTE .STK-MED ONE Stop: 04/20/17 11:29 Midazolam HCl (Versed 1 Mg/Ml) Confirm Administered Dose 2 mg .ROUTE .STK-MED ONE Stop: 04/20/17 11:06 Misoprostol (Cytotec) 200 mcg PO .ONCE PRN PRN Reason: Post Hemorrhage Misoprostol (Cytotec) 25 mcg VAG Q4H PRN PRN Reason: Cervical Ripening Stop: 04/21/17 00:08 Morphine Sulfate (Duramorph Pf) Confirm Administered Dose 10 mg .ROUTE .STK-MED ONE Stop: 04/20/17 11:26 Nalbuphine HCl (Nubain) 10 mg IVPUSH ASDIRECTED PRN PRN Reason: Pain (severe 7-10) Stop: 04/21/17 20:08 Nalbuphine HCl (Nubain) 5 mg IVPUSH Q3H PRN PRN Reason: Pruritis Stop: 04/21/17 11:30 Ondansetron HCl (Zofran) Confirm Administered Dose 4 mg .ROUTE .STK-MED ONE Stop: 04/20/17 11:15 Oxytocin (Pitocin) Confirm Administered Dose 20 unit .ROUTE .STK-MED ONE Stop: 04/20/17 11:00 Propofol (Diprivan 20 Ml) Confirm Administered Dose 200 mg .ROUTE .STK-MED ONE Stop: 04/20/17 11:07 Sterile Water (Sterile Water For Irrigation) 1,000 ml IRR ASDIRECTED PRN PRN Reason: delivery - Infant Interaction Feeding: Breastfed ; Nursed Well Support Person: - Recovery Exam Fundal Tone: Firm Fundal Level: 1 Fingerbreadths Below Umbilicus Fundal Placement: Midline Lochia Amount: Scant Lochia Color: Rubra/Red Perineum Description: Intact, Minimal Bruising/Swelling Episiotomy/Laceration: Approximated Bladder Status: Voiding Urinary Elimination: Voided - Problem List & Annotations (1) delivery delivered SNOMED Code(s): 085273135 Code(s): O82 - ENCOUNTER FOR DELIVERY WITHOUT INDICATION Status: Acute Priority: Low Current Visit: Yes Onset Date: ~04/20/17 - Problem List Review Problem List Initiated/Reviewed/Updated: Yes - My Orders Last 24 Hours: My Active Orders 04/21/17 21:45 CULTURE BLOOD [BC] Routine 04/21/17 21:55 CULTURE BLOOD [BC] Routine 04/21/17 22:07 Chest 2V [CR] Routine 04/21/17 22:30 Iron Polysaccharides Complex [Ferrex 150] 150 mg PO DAILY 04/21/17 22:45 CULTURE URINE [RM] Routine Ascorbic Acid [Vitamin C] 500 mg PO DAILY 04/22/17 00:00 Clindamycin Phosphate in D5W [Cleocin in D5W] 900 mg Premix Bag 1 bag IV Q8H 04/22/17 06:00 Gentamicin 80 mg Sodium Chloride 0.9% [Normal Saline] 50 ml IV Q8H 04/22/17 10:00 Ampicillin 500 mg Sodium Chloride 0.9% [Normal Saline] 50 ml IV Q6H - Assessment Assessment:: 26 yo P0D 1 , s/p Primary LTCS POD 2, with Fever ( Breast engorgment ) , Anemia asymptomatic Plan: Amp/ gentamicin/Clindamycin VSS Pain control as needed Encourage ambulation Continue Discharge tomorrow Iron, Vitamin C - Plan Plan:: as above
--- NOTE | 2017-04-22 13:45 | CR ---
EXAM DATE: 04/20/17 PATIENT'S AGE: 26 Patient: SWATI ACOSTA Facility: [place], [place] Site . Site : 1990 Study: XRay Chest [id number] 11:13:22 PM Ordering Physician: Edwin Pedro Final Report: INDICATION: sob TECHNIQUE: Chest 2 views COMPARISON: None FINDINGS: Cardiovascular and mediastinum: Heart size and vasculature are normal in caliber and appearance. Mediastinum is within normal limits. Lungs and pleural spaces: Blunted left costophrenic sulcus. Horizontal stranding / scarring along the right midlung. No pneumothorax. Bones: No significant findings. Other: Crescentic lucency under the right hemidiaphragm suspicious for free air IMPRESSION: 1. Small left-sided pleural effusion. 2. Crescentic lucency under the right hemidiaphragm suspicious for free intraperitoneal air. LISET Lilly called at 2325 hours on April 21, 2017 Dictated by Brennen Bear MD @ 04/21/2017 11:27:57 PM Dictated by: Brennen Bear MD @ 04/21/2017 23:28:06 (Electronic Signature) Report Signed by Proxy. THOR
[2017-04-22] MEDS ORDERED: Acetaminophen 500 MG Tab PO ONE (16:30)
[2017-04-22] MEDS ORDERED: Acetaminophen 500 MG Tab ONE (16:56)
[2017-04-22] MEDS: Ibuprofen 800 MG Tab PO PRN (22:19)
[2017-04-23] MEDS: Clindamycin Phosphate in D5W 900 MG in Premix Bag 1 BAG IV SCH ×4 (00:05→15:23)
[2017-04-23] MEDS ORDERED: Clindamycin Phosphate in D5W 50 ML IV ONE (04:11)
[2017-04-23] MEDS: Docusate Sodium 100 MG Cap PO SCH ×2 (08:22→08:58)
--- NOTE | 2017-04-23 08:53 | PCM.PNPP ---
- General Info Date of Service: 04/23/17 Admission Dx/Problem (Free Text): 26 uo P1 s/p [facility] for Arrest of Dilatation with fever ( resolved) and Anemia ( on Iron) Subjective Update: Patient seen at bedside , denies any complains this morning. Patient is ambulating , Has good pain control Voiding and tolerating regular diet. she has had a bowel movement Patient had a temperature of 101 @ 8.17pm ( 04/21) , no temperature spike since then . Patient with Hb of 7.0 , denies fatigue , dizziness , palpitation , she is ambulating without symptoms. Normal lochia . She was informed of the need for blood transfusion if she is symptomatic , she states she does not have any symptoms and will not want transfusion. I informed her to call the clinic if she feels any dizziness , lightheadness, palpitation and fatigue WBC: 16.5 --> 14.34 H/H : 11 --> 7.0 Functional Status: Reports: Pain Controlled, Tolerating Diet, Ambulating, Urinating - Review of Systems General: Reports: No Symptoms HEENT: Reports: No Symptoms Pulmonary: Reports: No Symptoms Cardiovascular: Reports: No Symptoms Gastrointestinal: Reports: No Symptoms Genitourinary: Reports: No Symptoms Musculoskeletal: Reports: No Symptoms Skin: Reports: No Symptoms Neurological: Reports: No Symptoms Psychiatric: Reports: No Symptoms - General Info Date of Service: 04/23/17 - Patient Data Vital Signs - Most Recent: Last Vital Signs Temp 37.1 C 04/23/17 06:44 Pulse 109 H 04/22/17 16:00 Resp 18 04/22/17 16:00 BP 115/68 04/22/17 16:00 Pulse Ox 99 04/22/17 16:00 Weight - Most Recent: 65.317 kg Micro Results - Last 24 Hours: Microbiology 04/21/17 22:45 Urine Culture - Final Urine, Clean Catch No Growth 04/21/17 21:45 Aerobic Blood Culture - Preliminary Blood NO GROWTH AFTER 1 DAY Anaerobic Blood Culture - Preliminary NO GROWTH AFTER 1 DAY 04/21/17 21:55 Aerobic Blood Culture - Preliminary Blood NO GROWTH AFTER 1 DAY Anaerobic Blood Culture - Preliminary NO GROWTH AFTER 1 DAY Med Orders - Current: Current Medications Ascorbic Acid (Vitamin C) 500 mg PO DAILY PEDRO LUIS Last Admin: 04/22/17 10:21 Dose: 500 mg Bisacodyl (Dulcolax) 10 mg RECTAL .ONCE PRN PRN Reason: Constipation Diphenhydramine HCl (Benadryl) 25 mg IVPUSH Q6H PRN PRN Reason: Itching or Nausea Docusate Sodium (Colace) 100 mg PO BID [facility] Last Admin: 04/23/17 08:22 Dose: Not Given Emollient Ointment (Lansinoh Hpa) 0 gm TOP ASDIRECTED PRN PRN Reason: Sore Nipples Oxytocin/Lactated Ringer's (Pitocin In Lr 30 Units/500 Ml) 30 unit in 500 mls @ 2 mls/hr IV TITRATE PEDRO LUIS; 2 MUNITS/MIN PRN Reason: Protocol Last Titration: 04/20/17 08:43 Dose: 4 munits/min, 4 mls/hr Lactated Ringer's (Ringers, Lactated) 1,000 mls @ 125 mls/hr IV ASDIRECTED [facility] Last Admin: 04/21/17 09:02 Dose: 125 mls/hr Gentamicin Sulfate 80 mg/ (Sodium Chloride) 52 mls @ 100 mls/hr IV Q8H [facility] Last Admin: 04/23/17 06:07 Dose: 100 mls/hr Clindamycin Phosphate 900 mg/ (Premix) 50 mls @ 100 mls/hr IV Q8H [facility] Last Admin: 04/23/17 00:05 Dose: 100 mls/hr Ampicillin Sodium 500 mg/ (Sodium Chloride) 50 mls @ 100 mls/hr IV Q6H [facility] Last Admin: 04/23/17 04:16 Dose: 100 mls/hr Ibuprofen (Motrin) 800 mg PO Q8H PRN PRN Reason: mild pain or fever Last Admin: 04/22/17 22:19 Dose: 800 mg Misoprostol (Cytotec) 25 mcg VAG .ONCE [facility] Naloxone HCl (Narcan) 0.4 mg IVPUSH ONETIME PRN PRN Reason: Respiratory Depression Ondansetron HCl (Zofran) 4 mg IV Q4H PRN PRN Reason: Nausea/Vomiting Oxycodone/Acetaminophen (Percocet 325-5 Mg) 1 tab PO ONETIME PRN PRN Reason: Pain (moderate 4-6) Oxycodone/Acetaminophen (Percocet 325-5 Mg) 2 tab PO Q4H PRN PRN Reason: Pain (moderate 4-6) Polysaccharide Iron Complex (Ferrex 150) 150 mg PO DAILY PEDRO LUIS Last Admin: 04/22/17 10:08 Dose: 150 mg Sodium Chloride (Saline Flush) 10 ml FLUSH ASDIRECTED PRN PRN Reason: Keep Vein Open Sodium Chloride (Saline Flush) 2.5 ml FLUSH ASDIRECTED PRN PRN Reason: Keep Vein Open Terbutaline Sulfate (Brethine) 0.25 mg SUBCUT ASDIRECTED PRN PRN Reason: Tacysystole Discontinued Medications Acetaminophen (Tylenol Extra Strength) 1,000 mg PO ONETIME ONE Stop: 04/22/17 16:31 Last Admin: 04/22/17 16:57 Dose: 1,000 mg Acetaminophen (Tylenol Extra Strength) Confirm Administered Dose 1,000 mg .ROUTE .STK-MED ONE Stop: 04/22/17 16:57 Last Admin: 04/22/17 17:36 Dose: Not Given Bupivacaine HCl (Sensorcaine-Mpf 0.5%) Confirm Administered Dose 20 ml .ROUTE .STK-MED ONE Stop: 04/20/17 10:47 Last Admin: 04/20/17 12:04 Dose: Not Given Butorphanol Tartrate (Stadol) 1 mg IVPUSH ASDIRECTED PRN PRN Reason: Pain Last Admin: 04/20/17 02:20 Dose: 1 mg Carboprost Tromethamine (Hemabate Ds) 250 mcg IM ASDIRECTED PRN PRN Reason: Post Hemorrhage Cefazolin Sodium (Ancef) Confirm Administered Dose 1 gm .ROUTE .STK-MED ONE Stop: 04/20/17 11:02 Citric Acid/Sodium Citrate (Bicitra Solution) 30 ml PO ONETIME ONE Stop: 04/20/17 10:44 Last Admin: 04/20/17 10:52 Dose: 30 ml Fentanyl (Sublimaze) Confirm Administered Dose 100 mcg .ROUTE .STK-MED ONE Stop: 04/20/17 03:10 Last Admin: 04/20/17 08:17 Dose: Not Given Fentanyl (Sublimaze) Confirm Administered Dose 100 mcg .ROUTE .STK-MED ONE Stop: 04/20/17 11:06 Fentanyl (Sublimaze) Confirm Administered Dose 100 mcg .ROUTE .STK-MED ONE Stop: 04/20/17 11:24 Fentanyl (Sublimaze) 50 mcg IVPUSH Q5M PRN PRN Reason: Pain (severe 7-10) Stop: 04/21/17 11:30 Fentanyl (Sublimaze) Confirm Administered Dose 100 mcg .ROUTE .STK-MED ONE Stop: 04/20/17 11:45 Lactated Ringer's (Ringers, Lactated) 1,000 mls @ 150 mls/hr IV ASDIRECTED [facility] Last Admin: 04/20/17 09:04 Dose: 150 mls/hr Oxytocin/Lactated Ringer's (Pitocin In Lr 30 Units/500 Ml) 30 unit in 500 mls @ 999 mls/hr IV ASDIRECTED [facility] PRN Reason: 999 MUNITS/MIN Stop: 04/19/17 20:46 Last Admin: 04/20/17 12:03 Dose: Not Given Ropivacaine (Naropin 0.2%) Confirm Administered Dose 100 mls @ as directed .ROUTE .STK-MED ONE Stop: 04/20/17 03:10 Last Admin: 04/20/17 08:17 Dose: Not Given Sodium Chloride (Normal Saline) Confirm Administered Dose 20 mls @ as directed .ROUTE .STK-MED ONE Stop: 04/20/17 11:02 Acetaminophen 1,000 mg/ Premix 100 mls @ 400 mls/hr IV NOW ONE Stop: 04/20/17 12:44 Last Admin: 04/20/17 12:54 Dose: Not Given Acetaminophen (Ofirmev) Confirm Administered Dose 100 mls @ as directed IV .STK- MED ONE Stop: 04/20/17 12:19 Ampicillin Sodium/Sulbactam (Sodium 3 gm/ Sodium Chloride) 100 mls @ 200 mls/ hr IV Q6H [facility] Stop: 04/21/17 15:01 Last Admin: 04/21/17 03:07 Dose: 200 mls/hr Ampicillin Sodium/Sulbactam (Sodium 3 gm/ Sodium Chloride) 100 mls @ 200 mls/ hr IV Q6H [facility] Stop: 04/21/17 09:44 Last Admin: 04/21/17 09:12 Dose: 200 mls/hr Clindamycin Phosphate 900 mg/ (Premix) 50 mls @ 100 mls/hr IV Q8H [facility] Gentamicin Sulfate 80 mg/ (Sodium Chloride) 52 mls @ 100 mls/hr IV Q6H [facility] Ampicillin Sodium 500 mg/ (Sodium Chloride) 50 mls @ 100 mls/hr IV Q6H [facility] Last Admin: 04/21/17 22:47 Dose: 100 mls/hr Gentamicin Sulfate 100 mg/ (Sodium Chloride) 52.5 mls @ 100 mls/hr IV ONETIME ONE Stop: 04/22/17 22:38 Gentamicin Sulfate 100 mg/ (Sodium Chloride) 52.5 mls @ 100 mls/hr IV ONETIME ONE Stop: 04/21/17 23:24 Last Admin: 04/21/17 23:18 Dose: 100 mls/hr Ampicillin Sodium 500 mg/ (Sodium Chloride) 50 mls @ 100 mls/hr IV Q6H [facility] Last Admin: 04/22/17 04:13 Dose: 100 mls/hr Clindamycin Phosphate (Cleocin In D5w) Confirm Administered Dose 50 mls @ as directed IV .STK-MED ONE Stop: 04/23/17 04:12 Last Admin: 04/23/17 08:22 Dose: Not Given Ketorolac Tromethamine (Toradol) 30 mg IVPUSH Q6H [facility] Stop: 04/21/17 13:31 Last Admin: 04/21/17 14:02 Dose: 30 mg Lidocaine HCl (Xylocaine 1%) 50 ml INJECT .ONCE PRN PRN Reason: Laceration repair Methylergonovine Maleate (Methergine) 0.2 mg IM ASDIRECTED PRN PRN Reason: Post Hemorrhage Methylergonovine Maleate (Methergine) Confirm Administered Dose 0.2 mg .ROUTE .STK-MED ONE Stop: 04/20/17 11:29 Midazolam HCl (Versed 1 Mg/Ml) Confirm Administered Dose 2 mg .ROUTE .STK-MED ONE Stop: 04/20/17 11:06 Misoprostol (Cytotec) 200 mcg PO .ONCE PRN PRN Reason: Post Hemorrhage Misoprostol (Cytotec) 25 mcg VAG Q4H PRN PRN Reason: Cervical Ripening Stop: 04/21/17 00:08 Morphine Sulfate (Duramorph Pf) Confirm Administered Dose 10 mg .ROUTE .STK-MED ONE Stop: 04/20/17 11:26 Nalbuphine HCl (Nubain) 10 mg IVPUSH ASDIRECTED PRN PRN Reason: Pain (severe 7-10) Stop: 04/21/17 20:08 Nalbuphine HCl (Nubain) 5 mg IVPUSH Q3H PRN PRN Reason: Pruritis Stop: 04/21/17 11:30 Ondansetron HCl (Zofran) Confirm Administered Dose 4 mg .ROUTE .STK-MED ONE Stop: 04/20/17 11:15 Oxytocin (Pitocin) Confirm Administered Dose 20 unit .ROUTE .STK-MED ONE Stop: 04/20/17 11:00 Propofol (Diprivan 20 Ml) Confirm Administered Dose 200 mg .ROUTE .STK-MED ONE Stop: 04/20/17 11:07 Sterile Water (Sterile Water For Irrigation) 1,000 ml IRR ASDIRECTED PRN PRN Reason: delivery - Interaction Disposition, : [place] in Room with Family Infant Interaction: Holding Infant Infant Feeding: Breastfed ; Nursed Well Support Person: - Recovery Exam Fundal Tone: Firm Fundal Level: 1 Fingerbreadths Below Umbilicus Fundal Placement: Midline Lochia Amount: Scant Lochia Color: Serosa/[place] Perineum Description: Intact, Minimal Bruising/Swelling Episiotomy/Laceration: Approximated Bladder Status: Voiding Urinary Elimination: Voided - Exam General: Alert, Oriented Lungs: Clear to Auscultation Cardiovascular: Regular Rate, Regular Rhythm GI/Abdominal Exam: Other (pfannestiel skin incision with steristrips in place c/ d/i ) Extremities: Normal Inspection, Normal Range of Motion Wound/Incisions: Healing Well Neurological: No New Focal Deficit Psy/Mental Status: Alert - Problem List & Annotations (1) delivery delivered SNOMED Code(s): 730019331 Code(s): O82 - ENCOUNTER FOR DELIVERY WITHOUT INDICATION Status: Acute Priority: Low Current Visit: Yes Onset Date: ~04/20/17 Annotation/ Comment:: - Problem List Review Problem List Initiated/Reviewed/Updated: Yes - My Orders Last 24 Hours: My Active Orders 04/22/17 10:00 Ampicillin 500 mg Sodium Chloride 0.9% [Normal Saline] 50 ml IV Q6H - Assessment Assessment:: 26 yo P0D 1 , s[facility]p [facility] POD 3, with Fever ( Breast engorgment , resolved ) , Anemia asymptomatic on Iron Plan: Discharge home today Encourage Ambulation Pain control Anemia precautions given - Plan Plan:: as above
[2017-04-23] MEDS: Iron Polysaccharides Complex 150 MG Cap PO SCH (08:57)
[2017-04-23] MEDS: Ibuprofen 800 MG Tab PO PRN (08:58)
[2017-04-23] MEDS: Ascorbic Acid 500 MG Tab PO SCH (08:58)
[2017-04-23 09:36] VITALS: BP 112/70
--- NOTE | 2017-04-23 13:06 | OR ---
SURGEON: STEPHANI GUPTA DATE OF PROCEDURE: 04/20/2017 PREOPERATIVE DIAGNOSIS: A 26-year-old 1, para 0, 41 weeks, 2 days for caesarean section secondary to arrest of dilatation and category 2 heart tracing. POSTOPERATIVE DIAGNOSIS: A 26-year-old 1, para 0, 41 weeks, 2 days for primary caesarean section as a result of arrest of dilatation and category 2 heart tracing. PROCEDURE: Primary low transverse section. MILITARY POLICE OFFICER: Codey. ANESTHESIA: Epidural. ESTIMATED BLOOD LOSS: 700. IV FLUID: 1600. URINE OUTPUT: 1100. FINDINGS: Live male delivered with score 9 and 9, the weight was 3500, normal appearing uterus, tubes, and ovaries. COMPLICATIONS: None. DISPOSITION: Stable and transferred the to the Nursery. BRIEF HISTORY: This is a 26-year-old 1, para 0, who was started with induction of labor for postdates. She was 41 weeks, 1 day, and induction of labor was started on 04/19/2017. Induction of labor was started with cervical Duff balloon. When she presented, she was 2 cm dilated, and the Duff balloon came out at 2330 hours, and changed to 5/80/-1. The patient was also started on Pitocin at 2330 hours. The patient made change from 5/80/-1 to 6/80/-2 at around 0200 hours. The patient was re-evaluated at 0415 hours and had the same exam. A different provider then re-assessed the patient. The patient was found to be 6/80/-3 at 0830 hours. AROM was performed. A thick meconium was noted. The patient was then re-examined and found to be 6/80/-3. The tracing at that time was category 2 with minimal to moderate variability, occasional late decelerations. As a result of this, the patient was offered a caesarean section. The patient understood the risks, benefits, and alternatives. Risks include infection, bleeding, and damage to surrounding structures. Alternative was to continue induction of labor, and the benefit was improved maternal and morbidity and mortality. The patient understands and accepts to proceed with procedure. NARRATIVE: The patient was then taken to the operating room, where epidural anesthesia was found to be adequate. Ancef 1 g was given for infection prophylaxis. The patient was prepared and draped in the dorsal supine position with a leftward tilt. A Pfannenstiel skin incision was made with a scalpel. The incision was carried down to the fascia with Bovie. The fascia was incised and extended laterally. The inferior aspect of the fascia was grasped with the Sergio clamp, and the underlying rectus muscle was . The bottom part of the fascia was also grasped with the rectus muscle and was also sharply dissected out with the Bovie. The rectus muscle was then in the midline down to the pubic symphysis to expose the peritoneum. The preperitoneal fat was dissected bluntly to expose the peritoneum. The peritoneum was opened and stretched to make the uterus visible. The peritoneal incision was then made superiorly and inferiorly to make the bladder reflection. The Cale retractor was placed in and used to expose the lower uterine segment. The intra-abdominal survey revealed scant preperitoneal fluid and a thinned out lower segment. The vesicouterine peritoneum was opened with the scissors, and the bladder flap was developed. The bladder peritoneum was dissected to expose the lower uterine segment. The lower uterine segment was incised with a scalpel, and it was extended manually bluntly laterally and in upward traction. The fetus was found to be in the cephalic position. The head was elevated out of the pelvis with special attention to outflow using the uterine incision as a fulcrum. Fundal pressure was applied once the head was brought into the incision. The infant was delivered with no difficulty. The mouth and nose were suctioned with the bulb. The cord was clamped and cut. The was handed over to the faculty instructor. IV Pitocin was initiated to facilitate uterine contraction. Additional Methergine was given to facilitate contraction. The placenta was delivered intact with the minimal massage of the uterine fundus. The uterus was then wiped with the lap sponge to assure complete removal of the placental membrane. The uterine incision was then closed with 0 Vicryl in 2 layers in a running lock fashion, and the second layer was also made an imbricating layer. The ovaries and tubes were found to be normal, and gutters were cleaned. The blood clots were thoroughly wiped out of the abdomen with moist laparotomy sponges. The uterine incision was inspected, and good hemostasis was noted. The peritoneum was closed with 2-0 Vicryl in a continuous fashion, the fascia was closed with 0 Vicryl in a continuous fashion, and the skin was closed with 3-0 Vicryl on a Farooq needle. The patient tolerated the procedure well. All counts were correct x2. The patient was taken to the Recovery Room in stable condition. Dr. Cuellar was present for the entire procedure. EITAN REYNOSO /[id number] MTDD
== END 2017-04-23 11:20 | disposition home or self-care (01) | DRG 540 ==
LOC: MW.OBCHECK 19:36 → MW.OB 19:37 → MW.OBCHECK 20:07 → OBSVTOIN 04-20 11:20 → MW.OB 04-20 13:46
PROVIDERS: ADMIT Obstetrics & Gynecology; ATTEND Obstetrics & Gynecology
PROC: 10D00Z1 Extraction of Products of Conception, Low, Open Approach (ICD-10-PCS; principal; 2017-04-20)
PROC: 0U7C7ZZ Dilation of Cervix, Via Natural or Artificial Opening (ICD-10-PCS; 2017-04-20)
PROC: 3E033VJ Introduction of Other Hormone into Peripheral Vein, Percutaneous Approach (ICD-10-PCS; 2017-04-20)
PROC: 10907ZC Drainage of Amniotic Fluid, Therapeutic from Products of Conception, Via Natural or Artificial Opening (ICD-10-PCS; 2017-04-20)
DX: O48.0 Post-term pregnancy (principal); O62.1 Secondary uterine inertia; O77.0 Labor and delivery complicated by meconium in amniotic fluid; R50.82 Postprocedural fever; Z3A.41 41 weeks gestation of pregnancy; Z37.0 Single live birth
CPT/HCPCS: 01967; 01968; 36415; 59025; 59200; 71020; 71020-26; 80048; 85014; 85018; 85025; 85027; 86850; 86900; 86901; 87040; 87086; A9270-GY; J0290; J0295; J0595; J0690; J1580; J1885; J2210; J2250; J2270; J2405; J2590; J2704; J3010; J7030; J7050; J7120

== ENCOUNTER 2019-12-04 05:16 | Inpatient (IN) | payer BC ==
[2019-12-04] MEDS ORDERED: Citric Acid/Sodium Citrate Solution 30 ML Cup PO ONE (05:19)
[2019-12-04] MEDS ORDERED: Sodium Chloride 0.9% 10 ML SDV IV PRN (05:19)
[2019-12-04] MEDS ORDERED: Sodium Chloride 0.9% 2.5 ML Syringe FLUSH PRN (05:19)
[2019-12-04] MEDS ORDERED: Sodium Chloride 0.9% 10 ML Syringe FLUSH PRN (05:19)
[2019-12-04] MEDS ORDERED: ceFAZolin 2 GM in Premix Bag 1 BAG IV ONE (05:22)
[2019-12-04] MEDS ORDERED: Oxytocin/0.9 % Sodium Chloride 30 UNIT/500 ML BAG IV SCH (05:30)
[2019-12-04] MEDS: Lactated Ringers 1,000 ML IV SCH ×2 (05:45→06:41)
[2019-12-04] MEDS ORDERED: Morphine PF 10 MG/10 ML SDV ONE (07:00)
--- NOTE | 2019-12-04 07:02 | PCM.PREANE ---
Preanesthetic Assessment - Anesthesia/Transfusion/Family Hx Anesthesia History: Prior Anesthesia Without Reaction Family History of Anesthesia Reaction: No Transfusion History: No Prior Transfusion(s) Intubation History: Unknown - Review of Systems General: No Symptoms Pulmonary: No Symptoms Cardiovascular: No Symptoms Gastrointestinal: No Symptoms Neurological: No Symptoms Other: Reports: None - Physical Assessment Height: 5 ft 2 in Weight: 68.039 kg ASA Class: 2 Mental Status: Alert & Oriented x3 Airway Class: Mallampati = 2 Dentition: Reports: Normal Dentition, Implants (x2 uipper front) Thyro-Mental Finger Breadths: 3 Mouth Opening Finger Breadths: 2 ROM/Head Extension: Full Lungs: Clear to Auscultation, Normal Respiratory Effort Cardiovascular: Regular Rate, Regular Rhythm - Lab Values: Laboratory Last Values WBC 13.40 K/uL (4.0-11.0) H 12/04/19 06:26 RBC 3.86 M/uL (4.30-5.90) L 12/04/19 06:26 Hgb 11.9 g/dL (12.0-16.0) L 12/04/19 06:26 Hct 37.0 % (36.0-46.0) 12/04/19 06:26 MCV 95.9 fL (80.0-98.0) 12/04/19 06:26 MCH 30.8 pg (27.0-32.0) 12/04/19 06:26 MCHC 32.2 g/dL (31.0-37.0) 12/04/19 06:26 RDW Std Deviation 49.8 fl (28.0-62.0) 12/04/19 06:26 RDW Coeff of Elizabeth 14 % (11.0-15.0) 12/04/19 06:26 Plt Count 238 K/uL (150-400) 12/04/19 06:26 MPV 10.60 fL (7.40-12.00) 12/04/19 06:26 Nucleated RBC % 0.0 /100WBC 12/04/19 06:26 Nucleated RBCs # 0 K/uL 12/04/19 06:26 - Allergies Allergies/Adverse Reactions: Allergies Allergy/AdvReac Type Severity Reaction Status Date / Time No Known Allergies Allergy Verified 11/30/19 10:01 - Blood Blood Available: No - Anesthesia Plan Pre-Op Medication Ordered: None - Acknowledgements Anesthesia Type Planned: Spinal (general anesthesia back-up plan) Pt an Appropriate Candidate for the Planned Anesthesia: Yes Alternatives and Risks of Anesthesia Discussed w Pt/Guardian: Yes Pt/Guardian Understands and Agrees with Anesthesia Plan: Yes PreAnesthesia Questionnaire - Past Health History Medical/Surgical History: Denies Medical/Surgical History HEENT History: Reports: None Cardiovascular History: Reports: None Respiratory History: Reports: None Gastrointestinal History: Reports: None Genitourinary History: Reports: None IMAGING AIDE History: Reports: Musculoskeletal History: Reports: None Neurological History: Reports: None Psychiatric History: Reports: None Endocrine/Metabolic History: Reports: None Hematologic History: Reports: None Immunologic History: Reports: None Oncologic (Cancer) History: Reports: None Dermatologic History: Reports: None - Infectious Disease History Infectious Disease History: Reports: None - Past Surgical History Head Surgeries/Procedures: Reports: None HEENT Surgical History: Reports: Oral Surgery Other HEENT Surgeries/Procedures: dental implants Cardiovascular Surgical History: Reports: None Respiratory Surgical History: Reports: None GI Surgical History: Reports: None Female Surgical History: Reports: Section Endocrine Surgical History: Reports: None Neurological Surgical History: Reports: None Musculoskeletal Surgical History: Reports: None Oncologic Surgical History: Reports: None Dermatological Surgical History: Reports: None - SUBSTANCE USE Smoking Status *Q: Never Smoker Recreational Drug Use History: No - HOME MEDS Home Medications: Home Meds Ascorbic Acid [Vitamin C] 1,000 mg PO DAILY 11/30/19 [History] Pnv No.95/Ferrous Fum/Folic AC [ Vitamin Tablet] 1 tab PO DAILY [History] - CURRENT (IN HOUSE) MEDS Current Meds: Current Medications Lactated Ringer's (Ringers, Lactated) 1,000 mls @ 500 mls/hr IV BOLUS PEDRO LUIS Last Admin: 12/04/19 06:41 Dose: 500 mls/hr Oxytocin/Sodium Chloride (Oxytocin 30 Unit/500 Ml-Ns) 30 unit in 500 mls @ 250 mls/hr IV TITRATE PEDRO LUIS Sodium Chloride (Saline Flush) 10 ml FLUSH ASDIRECTED PRN PRN Reason: Keep Vein Open Sodium Chloride (Saline Flush) 2.5 ml FLUSH ASDIRECTED PRN PRN Reason: Keep Vein Open Sodium Chloride (Normal Saline) 10 ml IV ASDIRECTED PRN PRN Reason: IV Use Discontinued Medications Citric Acid/Sodium Citrate (Bicitra Solution) 30 ml PO ONETIME ONE Stop: 12/04/19 05:20 Cefazolin Sodium/Dextrose 2 gm (/ Premix) 50 mls @ 100 mls/hr IV ONETIME ONE Stop: 12/04/19 05:51
[2019-12-04] MEDS ORDERED: Oxytocin 10 Units/1 ML SDV ONE (07:06)
[2019-12-04] MEDS ORDERED: Ketorolac 30 MG/ML SDV ONE (07:06)
[2019-12-04] MEDS ORDERED: Ondansetron 4 MG/2 ML SDV ONE ×2 (07:06)
[2019-12-04] MEDS ORDERED: Citric Acid/Sodium Citrate Solution 30 ML Cup ONE (07:23)
[2019-12-04] MEDS ORDERED: ceFAZolin 1 GM Vial ONE (07:50)
[2019-12-04] MEDS ORDERED: Sodium Chloride 0.9% 20 ML ONE (07:50)
[2019-12-04] MEDS ORDERED: Acetaminophen/oxyCODONE 325-5 MG Tab PO PRN ×3 (08:38→09:33)
[2019-12-04] MEDS ORDERED: Ondansetron 4 MG/2 ML SDV IVPUSH PRN ×2 (08:38→09:33)
[2019-12-04] MEDS ORDERED: Nalbuphine 10 MG/1 ML Vial IVPUSH PRN (08:38)
[2019-12-04] MEDS ORDERED: Naloxone 0.4 MG/ML Syringe IVPUSH PRN (08:38)
[2019-12-04] MEDS ORDERED: fentaNYL 100 MCG/2 ML SDV IVPUSH PRN (08:38)
[2019-12-04] MEDS ORDERED: diphenhydrAMINE 50 MG/ML SDV IVPUSH PRN ×2 (08:38→09:33)
[2019-12-04] MEDS ORDERED: Lanolin 100% Cream 7 GM Tube TOP PRN (09:33)
[2019-12-04] MEDS ORDERED: Bisacodyl 10 MG Supp RECTAL PRN (09:33)
[2019-12-04] MEDS ORDERED: Tranexamic Acid 1,000 MG in Sodium Chloride 0.9% 100 ML IV PRN (09:33)
[2019-12-04] MEDS ORDERED: Oxytocin 10 Units/1 ML SDV IM PRN (09:33)
[2019-12-04] MEDS ORDERED: Methylergonovine 0.2 MG/1 ML Amp IM PRN (09:33)
[2019-12-04] MEDS ORDERED: Misoprostol 200 MCG Tab RECTAL PRN (09:33)
[2019-12-04] MEDS ORDERED: Oxytocin/Lactated Ringers 30 UNIT/500 ML BAG IV SCH (09:45)
[2019-12-04] MEDS ORDERED: Lactated Ringers 1,000 ML IV SCH (09:45)
--- NOTE | 2019-12-04 09:48 | PCM.OPNOTE ---
- General Post-Op/Procedure Note Date of Surgery/Procedure: 12/04/19 Operative Procedure(s): Repeat Lower segment Findings: Live male delivered at 809am , 9/9 weight 3230g Pre Op Diagnosis: 29yo @ 39w for repeat Post-Op Diagnosis: same Anesthesia Technique: Spinal Primary Surgeon: Willis Pineda Anesthesia Provider: Derian Sherman Pathology: Placenta Fluid Replacement, Intraop: 2,000 Output, Urine Amount: 300 EBL in mLs: 700 Complications: None Condition: Good
--- NOTE | 2019-12-04 09:56 | PCM.POSTAN ---
POST ANESTHESIA ASSESSMENT - MENTAL STATUS Mental Status: Alert - RESPIRATORY Respiratory Status: Respiratory Rate WNL - CARDIOVASCULAR CV Status: Pulse Rate WNL - GASTROINTESTINAL GI Status: No Symptoms - POST OP HYDRATION Hydration Status: Adequate & Stable
[2019-12-04] MEDS: Ketorolac 30 MG/ML SDV IVPUSH SCH ×3 (10:30→21:57)
--- NOTE | 2019-12-04 10:38 | OR ---
SURGEON: STEPHANI GUPTA DATE OF PROCEDURE: 12/04/2019 PREOPERATIVE DIAGNOSES: A 29-year-old G2, P1-0-0-1 at 39w2d for repeat . POSTOPERATIVE DIAGNOSIS: A 29-year-old G2, P1-0-0-1 at 39w2d for repeat . PROCEDURE: Repeat lower segment transverse section. ESTIMATED BLOOD LOSS: 700. IV FLUIDS: 2000. URINE OUTPUT: 300. ANESTHESIA: Spinal. PATHOLOGY: Placenta. NOTES AND FINDINGS: A live male delivered at 8:09am scores 9 and 9. Weight is 3230 g. DESCRIPTION OF PROCEDURE: The patient was taken to the operating room, where spinal anesthesia was performed without difficulty. She was prepared and draped in the dorsal supine position with a leftward tilt. Pfannenstiel skin incision was made at the line of the previous incision and carried down to the fascia with the Bovie. The fascia was incised and extended upwards laterally. The fascia was from the rectus muscle superiorly and inferiorly. The rectus muscle was then in the midline all the way to the pubic symphysis. The peritoneum was entered in with the aid of the Metzenbaum scissors and very minimal adhesions were noted. The Cale retractor was placed in without difficulty. A lower uterine incision was made after a bladder flap was created, and the baby was in cephalic position, and was delivered without difficulty. The cord was clamped and cut. Infant was handed over to the awaiting certified physical therapist assistant and nursery nurse. The placenta was then delivered without any difficulty with manual massage of the uterine fundus. The moist lap was used to clean the uterine cavity. Then, the uterus was repaired in 2 layers, first layer was with 0 Vicryl, second layer was with 0 Monocryl. Then, the incision was inspected, noted to be hemostatic. The tubes were inspected and ovaries were normal. The gutters were cleaned with moist laparotomy sponges. The Cale retractor was removed. The incision was then inspected, looked hemostatic, and the peritoneum was then closed with 2-0 Vicryl. The fascia was closed with 0 Vicryl in a continuous fashion. The subcutaneous fat was closed with 3-0 plain gut and the skin was closed with 3-0 Monocryl on a Farooq needle. All instrument and pad counts were correct x2. EITAN / MODL /[id number]
[2019-12-04] MEDS: Docusate Sodium 100 MG Cap PO SCH (21:56)
[2019-12-05] MEDS: Ketorolac 30 MG/ML SDV IVPUSH SCH ×2 (03:49→09:21)
--- NOTE | 2019-12-05 09:04 | PCM.PNPP ---
- General Info Date of Service: 12/05/19 Admission Dx/Problem (Free Text): Patient without complaints this morning. Minimal lochia. Has not attempted to void yet. Tolerating oral intake. Pain controlled. Denies fevers/chills. Functional Status: Reports: Pain Controlled, Tolerating Diet, Ambulating - Review of Systems General: Reports: No Symptoms HEENT: Reports: No Symptoms Pulmonary: Reports: No Symptoms Cardiovascular: Reports: No Symptoms Gastrointestinal: Reports: No Symptoms Genitourinary: Reports: No Symptoms Musculoskeletal: Reports: No Symptoms Skin: Reports: No Symptoms Neurological: Reports: No Symptoms Psychiatric: Reports: No Symptoms - Patient Data Vital Signs - Most Recent: Last Vital Signs Temp 36.6 C 12/05/19 07:24 Pulse 82 12/05/19 07:24 Resp 15 12/05/19 07:24 BP 108/61 12/05/19 07:24 Pulse Ox 95 12/05/19 07:24 Weight - Most Recent: 68.039 kg I&O - Last 24 Hours: Intake & Output 12/04/19 12/05/19 12/05/19 22:59 06:59 14:59 Intake Total 706 Output Total 700 2700 Balance 6 -2700 Lab Results - Last 24 Hours: Laboratory Results - last 24 hr 12/04/19 12/05/19 Range/Units 08:12 05:50 Hgb 10.5 L (12.0-16.0) g/dL Hct 32.6 L (36.0-46.0) % Cord VBG pH 7.426 (7.25-7.45) Cord VBG Base Excess -4 (-10--2) Med Orders - Current: Current Medications Bisacodyl (Dulcolax) 10 mg RECTAL ONETIME PRN PRN Reason: Constipation Diphenhydramine HCl (Benadryl) 25 mg IVPUSH Q6H PRN PRN Reason: Itching or Nausea Docusate Sodium (Colace) 100 mg PO BID [facility] Last Admin: 12/04/19 21:56 Dose: 100 mg Emollient Ointment (Lansinoh Hpa) 0 gm TOP ASDIRECTED PRN PRN Reason: Sore Nipples Fentanyl (Sublimaze) 50 mcg IVPUSH Q1H PRN PRN Reason: Pain (severe 7-10) Lactated Ringer's (Ringers, Lactated) 1,000 mls @ 500 mls/hr IV BOLUS [facility] Last Admin: 12/04/19 06:41 Dose: 500 mls/hr Oxytocin/Sodium Chloride (Oxytocin 30 Unit/500 Ml-Ns) 30 unit in 500 mls @ 250 mls/hr IV TITRATE [facility] Tranexamic Acid 1,000 mg/ (Sodium Chloride) 110 mls @ 660 mls/hr IV ONETIME PRN PRN Reason: Bleeding Lactated Ringer's (Ringers, Lactated) 1,000 mls @ 125 mls/hr IV ASDIRECTED [facility] Oxytocin/Lactated Ringer's (Pitocin In Lr 30 Units/500 Ml) 30 unit in 500 mls @ 125 mls/hr IV TITRATE [facility]; Protocol Ibuprofen (Motrin) 800 mg PO Q8H PRN PRN Reason: mild pain or fever Ketorolac Tromethamine (Toradol) 30 mg IVPUSH Q6H [facility] Stop: 12/05/19 09:46 Last Admin: 12/05/19 03:49 Dose: 30 mg Methylergonovine Maleate (Methergine) 0.2 mg IM ONETIME PRN PRN Reason: Excessive Vaginal Bleeding Misoprostol (Cytotec) 1,000 mcg RECTAL ONETIME PRN PRN Reason: excessive bleeding Nalbuphine HCl (Nubain) 5 mg IVPUSH ASDIRECTED PRN PRN Reason: Itching Ondansetron HCl (Zofran) 4 mg IVPUSH Q6H PRN PRN Reason: Nausea Ondansetron HCl (Zofran) 4 mg IVPUSH Q4H PRN PRN Reason: Nausea/Vomiting Oxycodone/Acetaminophen (Percocet 325-5 Mg) 2 tab PO Q6H PRN PRN Reason: Pain (moderate 4-6) Oxycodone/Acetaminophen (Percocet 325-5 Mg) 1 tab PO Q4H PRN PRN Reason: Pain (moderate 4-6) Oxycodone/Acetaminophen (Percocet 325-5 Mg) 2 tab PO Q4H PRN PRN Reason: Pain (moderate 4-6) Oxytocin (Pitocin) 10 unit IM ASDIRECTED PRN PRN Reason: Excessive Vaginal Bleeding Sodium Chloride (Saline Flush) 10 ml FLUSH ASDIRECTED PRN PRN Reason: Keep Vein Open Sodium Chloride (Saline Flush) 2.5 ml FLUSH ASDIRECTED PRN PRN Reason: Keep Vein Open Sodium Chloride (Normal Saline) 10 ml IV ASDIRECTED PRN PRN Reason: IV Use Discontinued Medications Cefazolin Sodium (Ancef) Confirm Administered Dose 2 gm .ROUTE .STK-MED ONE Stop: 12/04/19 07:51 Citric Acid/Sodium Citrate (Bicitra Solution) 30 ml PO ONETIME ONE Stop: 12/04/19 05:20 Last Admin: 12/04/19 07:27 Dose: 30 ml Citric Acid/Sodium Citrate (Bicitra Solution) Confirm Administered Dose 30 ml .ROUTE .STK-MED ONE Stop: 12/04/19 07:24 Last Admin: 12/04/19 10:29 Dose: Not Given Diphenhydramine HCl (Benadryl) 25 mg IVPUSH Q4H PRN PRN Reason: Itching Stop: 12/05/19 08:38 Cefazolin Sodium/Dextrose 2 gm (/ Premix) 50 mls @ 100 mls/hr IV ONETIME ONE Stop: 12/04/19 05:51 Last Admin: 12/04/19 10:29 Dose: Not Given Sodium Chloride (Normal Saline) Confirm Administered Dose 20 mls @ as directed .ROUTE .STK-MED ONE Stop: 12/04/19 07:51 Ketorolac Tromethamine (Toradol) Confirm Administered Dose 30 mg .ROUTE .STK- MED ONE Stop: 12/04/19 07:07 Morphine Sulfate (Duramorph Pf) Confirm Administered Dose 10 mg .ROUTE .STK-MED ONE Stop: 12/04/19 07:01 Naloxone HCl (Narcan) 0.1 mg IVPUSH ONETIME PRN PRN Reason: Respiratory Depression Stop: 12/05/19 08:38 Ondansetron HCl (Zofran) Confirm Administered Dose 4 mg .ROUTE .STK-MED ONE Stop: 12/04/19 07:07 Ondansetron HCl (Zofran) Confirm Administered Dose 4 mg .ROUTE .STK-MED ONE Stop: 12/04/19 07:07 Oxytocin (Pitocin) Confirm Administered Dose 20 unit .ROUTE .STK-MED ONE Stop: 12/04/19 07:07 - Interaction Infant Disposition, : to Nursery Infant Feeding: Attempted ; Nursed Fair/Poor Support Person: - Recovery Exam Fundal Tone: Firm Fundal Level: 2 Fingerbreadths Below Umbilicus Fundal Placement: Midline Lochia Amount: Scant Lochia Color: Rubra/Red Urinary Elimination: Not Voiding (Has not attempted voiding since catheter removed) - Exam General: Alert, Oriented Neck: Supple Lungs: Clear to Auscultation, Normal Respiratory Effort Cardiovascular: Regular Rate, Regular Rhythm GI/Abdominal Exam: Soft, Non-Tender Extremities: Non-Tender, No Pedal Edema Skin: Warm, Dry, Intact Wound/Incisions: Healing Well Neurological: No New Focal Deficit Psy/Mental Status: Alert, Normal Affect, Normal Mood - Problem List & Annotations (1) S/P repeat low transverse SNOMED Code(s): 816245902, 10062496, 538115188, 837080927, 202218262 Code(s): Z98.891 - HISTORY OF UTERINE SCAR FROM PREVIOUS SURGERY Status: Acute Current Visit: Yes - Problem List Review Problem List Initiated/Reviewed/Updated: Yes - Assessment Assessment:: 29yo s/p repeat delivery at 39w2d, POD#1 - Plan Plan:: Continue routine care. Hemoglobin stable. Encourage ambulation.
[2019-12-05] MEDS: Docusate Sodium 100 MG Cap PO SCH ×2 (09:21→21:17)
--- NOTE | 2019-12-05 12:07 | PCM48HPAN ---
Post Anesthesia Note - EVALUATION WITHIN 48HRS OF ANESTHETIC Vital Signs in Normal Range: Yes Patient Participated in Evaluation: Yes Respiratory Function Stable: Yes Airway Patent: Yes Cardiovascular Function Stable: Yes Hydration Status Stable: Yes Pain Control Satisfactory: Yes Nausea and Vomiting Control Satisfactory: Yes Mental Status Recovered: Yes Vital Signs: Last Vital Signs Temp 36.6 C 12/05/19 07:24 Pulse 86 12/05/19 08:00 Resp 16 12/05/19 08:00 BP 108/61 12/05/19 07:24 Pulse Ox 98 12/05/19 08:00 - COMMENTS/OBSERVATIONS Free Text/Narrative:: Doing well. Up ambulating. No problems noted.
[2019-12-05] MEDS: Ibuprofen 800 MG Tab PO PRN (18:15)
[2019-12-06] MEDS: Docusate Sodium 100 MG Cap PO SCH (08:13)
[2019-12-06] MEDS: Ibuprofen 800 MG Tab PO PRN (08:17)
[2019-12-06 09:26] VITALS: BP 115/69; PULSE 88
--- NOTE | 2019-12-06 09:44 | PCM.PNPP ---
- General Info Date of Service: 12/06/19 Subjective Update: Patient without complaints this morning. Minimal lochia. Pain controlled with oral pain medication. Tolerating oral intake and ambulating without dizziness. going well. Functional Status: Reports: Pain Controlled, Tolerating Diet, Ambulating, Urinating - Review of Systems General: Reports: No Symptoms HEENT: Reports: No Symptoms Pulmonary: Reports: No Symptoms Cardiovascular: Reports: No Symptoms Gastrointestinal: Reports: No Symptoms Genitourinary: Reports: No Symptoms Musculoskeletal: Reports: No Symptoms Skin: Reports: No Symptoms Neurological: Reports: No Symptoms Psychiatric: Reports: No Symptoms - Patient Data Vital Signs - Most Recent: Last Vital Signs Temp 36.3 C 12/06/19 08:30 Pulse 88 12/06/19 08:30 Resp 97 H 12/06/19 08:30 BP 115/69 12/06/19 08:30 Pulse Ox 97 12/06/19 04:00 Weight - Most Recent: 68.039 kg Med Orders - Current: Current Medications Bisacodyl (Dulcolax) 10 mg RECTAL ONETIME PRN PRN Reason: Constipation Diphenhydramine HCl (Benadryl) 25 mg IVPUSH Q6H PRN PRN Reason: Itching or Nausea Docusate Sodium (Colace) 100 mg PO BID [facility] Last Admin: 12/06/19 08:13 Dose: 100 mg Emollient Ointment (Lansinoh Hpa) 0 gm TOP ASDIRECTED PRN PRN Reason: Sore Nipples Fentanyl (Sublimaze) 50 mcg IVPUSH Q1H PRN PRN Reason: Pain (severe 7-10) Lactated Ringer's (Ringers, Lactated) 1,000 mls @ 500 mls/hr IV BOLUS [facility] Last Admin: 12/04/19 06:41 Dose: 500 mls/hr Oxytocin/Sodium Chloride (Oxytocin 30 Unit/500 Ml-Ns) 30 unit in 500 mls @ 250 mls/hr IV TITRATE [facility] Tranexamic Acid 1,000 mg/ (Sodium Chloride) 110 mls @ 660 mls/hr IV ONETIME PRN PRN Reason: Bleeding Lactated Ringer's (Ringers, Lactated) 1,000 mls @ 125 mls/hr IV ASDIRECTED [facility] Oxytocin/Lactated Ringer's (Pitocin In Lr 30 Units/500 Ml) 30 unit in 500 mls @ 125 mls/hr IV TITRATE [facility]; Protocol Ibuprofen (Motrin) 800 mg PO Q8H PRN PRN Reason: mild pain or fever Last Admin: 12/06/19 08:17 Dose: 800 mg Methylergonovine Maleate (Methergine) 0.2 mg IM ONETIME PRN PRN Reason: Excessive Vaginal Bleeding Misoprostol (Cytotec) 1,000 mcg RECTAL ONETIME PRN PRN Reason: excessive bleeding Nalbuphine HCl (Nubain) 5 mg IVPUSH ASDIRECTED PRN PRN Reason: Itching Ondansetron HCl (Zofran) 4 mg IVPUSH Q6H PRN PRN Reason: Nausea Ondansetron HCl (Zofran) 4 mg IVPUSH Q4H PRN PRN Reason: Nausea/Vomiting Oxycodone/Acetaminophen (Percocet 325-5 Mg) 2 tab PO Q6H PRN PRN Reason: Pain (moderate 4-6) Oxycodone/Acetaminophen (Percocet 325-5 Mg) 1 tab PO Q4H PRN PRN Reason: Pain (moderate 4-6) Oxycodone/Acetaminophen (Percocet 325-5 Mg) 2 tab PO Q4H PRN PRN Reason: Pain (moderate 4-6) Oxytocin (Pitocin) 10 unit IM ASDIRECTED PRN PRN Reason: Excessive Vaginal Bleeding Sodium Chloride (Saline Flush) 10 ml FLUSH ASDIRECTED PRN PRN Reason: Keep Vein Open Sodium Chloride (Saline Flush) 2.5 ml FLUSH ASDIRECTED PRN PRN Reason: Keep Vein Open Sodium Chloride (Normal Saline) 10 ml IV ASDIRECTED PRN PRN Reason: IV Use Discontinued Medications Cefazolin Sodium (Ancef) Confirm Administered Dose 2 gm .ROUTE .STK-MED ONE Stop: 12/04/19 07:51 Citric Acid/Sodium Citrate (Bicitra Solution) 30 ml PO ONETIME ONE Stop: 12/04/19 05:20 Last Admin: 12/04/19 07:27 Dose: 30 ml Citric Acid/Sodium Citrate (Bicitra Solution) Confirm Administered Dose 30 ml .ROUTE .STK-MED ONE Stop: 12/04/19 07:24 Last Admin: 12/04/19 10:29 Dose: Not Given Diphenhydramine HCl (Benadryl) 25 mg IVPUSH Q4H PRN PRN Reason: Itching Stop: 12/05/19 08:38 Cefazolin Sodium/Dextrose 2 gm (/ Premix) 50 mls @ 100 mls/hr IV ONETIME ONE Stop: 12/04/19 05:51 Last Admin: 12/04/19 10:29 Dose: Not Given Sodium Chloride (Normal Saline) Confirm Administered Dose 20 mls @ as directed .ROUTE .STK-MED ONE Stop: 12/04/19 07:51 Ketorolac Tromethamine (Toradol) Confirm Administered Dose 30 mg .ROUTE .STK- MED ONE Stop: 12/04/19 07:07 Ketorolac Tromethamine (Toradol) 30 mg IVPUSH Q6H [facility] Stop: 12/05/19 09:46 Last Admin: 12/05/19 09:21 Dose: 30 mg Morphine Sulfate (Duramorph Pf) Confirm Administered Dose 10 mg .ROUTE .STK-MED ONE Stop: 12/04/19 07:01 Naloxone HCl (Narcan) 0.1 mg IVPUSH ONETIME PRN PRN Reason: Respiratory Depression Stop: 12/05/19 08:38 Ondansetron HCl (Zofran) Confirm Administered Dose 4 mg .ROUTE .STK-MED ONE Stop: 12/04/19 07:07 Ondansetron HCl (Zofran) Confirm Administered Dose 4 mg .ROUTE .STK-MED ONE Stop: 12/04/19 07:07 Oxytocin (Pitocin) Confirm Administered Dose 20 unit .ROUTE .STK-MED ONE Stop: 12/04/19 07:07 - Infant Interaction Disposition, : [place] in Room with Family Interaction: Holding Infant Feeding: Breastfed ; Nursed Well Support Person: - Recovery Exam Fundal Tone: Firm Fundal Level: 2 Fingerbreadths Below Umbilicus Fundal Placement: Midline Lochia Amount: Scant Lochia Color: Rubra/Red Bladder Status: Voiding Urinary Elimination: Voided - Exam General: Alert, Oriented Neck: Supple Lungs: Clear to Auscultation, Normal Respiratory Effort Cardiovascular: Regular Rate, Regular Rhythm GI/Abdominal Exam: Soft, Non-Tender Extremities: Non-Tender Skin: Warm, Dry, Intact Wound/Incisions: Healing Well Neurological: No New Focal Deficit Psy/Mental Status: Alert, Normal Affect, Normal Mood - Problem List & Annotations (1) S/P repeat low transverse SNOMED Code(s): 981363940, 46275570, 667123025, 435224715, 450096287 Code(s): Z98.891 - HISTORY OF UTERINE SCAR FROM PREVIOUS SURGERY Status: Acute Current Visit: Yes - Problem List Review Problem List Initiated/Reviewed/Updated: Yes - My Orders Last 24 Hours: My Active Orders 12/06/19 09:37 Ready for Discharge [RC] PER UNIT ROUTINE - Assessment Assessment:: 29yo s/p repeat delivery at 39w2d, POD#2 - Plan Plan:: Patient desires discharge home today. Reviewed discharge instructions and precautions. Follow-up incision check in 2 weeks.
== END 2019-12-06 13:03 | disposition home or self-care (01) | DRG 540 ==
LOC: MW.OB 05:16
PROVIDERS: ADMIT Obstetrics & Gynecology; ATTEND Obstetrics & Gynecology
PROC: 10D00Z1 Extraction of Products of Conception, Low, Open Approach (ICD-10-PCS; principal; 2019-12-04)
DX: O34.211 Maternal care for low transverse scar from previous cesarean delivery (principal); Z3A.39 39 weeks gestation of pregnancy; Z37.0 Single live birth; Z79.899 Other long term (current) drug therapy
CPT/HCPCS: 01961; 36415; 51702; 59025; 82803; 85014; 85018; 85027; 86592; 86593; 86850; 86900; 86901; A9270-GY; J0690; J1885; J2270; J2405; J2590; J7120

== ENCOUNTER 2023-08-28 05:32 | Inpatient (IN) | payer BC ==
[2023-08-28] MEDS ORDERED: Morphine PF 10 MG/10 ML SDV ONE (05:36)
[2023-08-28] MEDS ORDERED: fentaNYL 100 MCG/2 ML SDV ONE (05:36)
[2023-08-28] MEDS ORDERED: Glycopyrrolate 0.2 MG/ML SDV ONE ×2 (05:57→06:05)
[2023-08-28] MEDS ORDERED: Propofol 200 MG/20 ML SDV ONE (05:59)
[2023-08-28] MEDS ORDERED: Metoprolol Tartrate 5 MG/5 ML SDV ONE (06:02)
[2023-08-28] MEDS ORDERED: ePHEDrine 50 MG/ML SDV ONE (06:05)
[2023-08-28] MEDS ORDERED: Ondansetron 4 MG/2 ML SDV ONE (06:05)
[2023-08-28] MEDS ORDERED: Phenylephrine 1% 10 MG/ML SDV ONE (06:05)
[2023-08-28] MEDS ORDERED: Oxytocin 10 Units/1 ML SDV ONE (06:05)
[2023-08-28] MEDS ORDERED: Dexamethasone 4 MG/ML 5 ML MDV ONE (06:05)
[2023-08-28] MEDS ORDERED: Tranexamic Acid 1,000 MG/10 ML Vial ONE (06:05)
[2023-08-28] MEDS ORDERED: Ketorolac 30 MG/ML SDV ONE (06:05)
[2023-08-28] MEDS ORDERED: Water For Injection, Sterile 20 ML ONE (06:05)
[2023-08-28] MEDS ORDERED: ceFAZolin 1 GM Vial ONE (06:05)
[2023-08-28] MEDS ORDERED: dexmedeTOMIDine HCl 200 MCG/2 ML SDV ONE (06:05)
[2023-08-28] MEDS ORDERED: Citric Acid/Sodium Citrate Solution 30 ML Cup PO ONE (06:08)
[2023-08-28] MEDS ORDERED: Sodium Chloride 0.9% 2.5 ML Syringe FLUSH PRN (06:08)
[2023-08-28] MEDS ORDERED: Sodium Chloride 0.9% 20 ML SDV IV PRN (06:08)
[2023-08-28] MEDS ORDERED: Sodium Chloride 0.9% 10 ML Syringe FLUSH PRN (06:08)
[2023-08-28] MEDS ORDERED: Ropivacaine 0.5% 5 MG/ML 30 ML SDV ONE (06:11)
[2023-08-28] MEDS ORDERED: Lactated Ringers 1,000 ML IV SCH ×2 (06:15→07:00)
[2023-08-28] MEDS ORDERED: Oxytocin/0.9 % Sodium Chloride 30 UNIT/500 ML BAG IV SCH ×2 (06:15→07:00)
[2023-08-28] MEDS ORDERED: Albuterol 0.083% 2.5 MG/3 ML Neb Soln NEB PRN (06:23)
[2023-08-28] MEDS ORDERED: Acetaminophen/oxyCODONE 325-5 MG Tab PO PRN (06:23)
[2023-08-28] MEDS ORDERED: droPERidol 5 MG/2 ML SDV IVPUSH PRN (06:23)
[2023-08-28] MEDS ORDERED: ePHEDrine 50 MG/ML SDV IVPUSH PRN (06:23)
[2023-08-28] MEDS ORDERED: HYDROmorphone 1 MG/ML Syringe IVPUSH PRN (06:23)
[2023-08-28] MEDS ORDERED: diphenhydrAMINE 50 MG/ML SDV IVPUSH PRN ×2 (06:23→06:46)
[2023-08-28] MEDS ORDERED: Metoclopramide 10 MG/2 ML SDV IVPUSH PRN (06:23)
[2023-08-28] MEDS ORDERED: fentaNYL 50 MCG/ML SDV IVPUSH PRN (06:23)
[2023-08-28] MEDS ORDERED: Naloxone 0.4 MG/ML SDV IVPUSH PRN (06:23)
[2023-08-28] MEDS ORDERED: fentaNYL 100 MCG/2 ML SDV IVPUSH PRN (06:23)
[2023-08-28] MEDS: Ketorolac 30 MG/ML SDV IVPUSH SCH ×3 (06:30→18:38)
[2023-08-28] MEDS ORDERED: Oxytocin 10 Units/1 ML SDV IM PRN (06:46)
[2023-08-28] MEDS ORDERED: oxyCODONE 5 MG Tab PO PRN (06:46)
[2023-08-28] MEDS ORDERED: Bisacodyl 10 MG Supp RECTAL PRN (06:46)
[2023-08-28] MEDS ORDERED: Ondansetron 4 MG/2 ML SDV IVPUSH PRN ×3 (06:46→12:00)
[2023-08-28] MEDS ORDERED: Misoprostol 200 MCG Tab RECTAL PRN (06:46)
[2023-08-28] MEDS ORDERED: Ibuprofen 800 MG Tab PO PRN (06:46)
[2023-08-28] MEDS ORDERED: Lanolin 100% Cream 7 GM Tube TOP PRN (06:46)
[2023-08-28 07:19] LABS: PH,UMBILICAL ARTERIAL 7.251 (7.18-7.38); PH,UMBILICAL VENOUS 7.334 (7.25-7.45)
[2023-08-28] MEDS: Prenatal Multivitamin with Calcium/Folic Acid/Iron Tab PO SCH (07:58)
[2023-08-28] MEDS: Docusate Sodium 100 MG Cap PO SCH ×2 (07:58→21:04)
[2023-08-28 10:03] LABS: HEMATOCRIT 40.7 % (37.0-47.0); HEMOGLOBIN 14.3 g/dL (12.0-16.0); MEAN CORPUSCULAR HEMOGLOBIN 31.9 pg (28.0-32.0); MEAN CORPUSCULAR HGB CONC 35.1 g/dL (32.0-36.0); MEAN CORPUSCULAR VOLUME 90.8 fL (83.0-99.0); MEAN PLATELET VOLUME 12.6 fL (9.4-12.3); PLATELET COUNT,PLT 299 K/uL (150-400); RED BLOOD CELL COUNT 4.48 M/uL (4.10-5.30); WHITE BLOOD CELL COUNT,WBC 13.87 K/uL (3.9-11.3)
[2023-08-28] MEDS ORDERED: Morphine 2 MG/ML SYRINGE IVPUSH PRN (12:00)
[2023-08-28] MEDS: Acetaminophen 1,000 MG in Premix Bag 1 BAG IV SCH ×2 (12:42→18:40)
[2023-08-29] MEDS: Acetaminophen 1,000 MG in Premix Bag 1 BAG IV SCH (00:30)
[2023-08-29] MEDS: Ketorolac 30 MG/ML SDV IVPUSH SCH ×2 (00:48→06:29)
[2023-08-29 06:12] LABS: HEMATOCRIT 27.5 % (37.0-47.0); HEMOGLOBIN 9.7 g/dL (12.0-16.0)
[2023-08-29] MEDS: Prenatal Multivitamin with Calcium/Folic Acid/Iron Tab PO SCH (09:28)
[2023-08-29] MEDS: Docusate Sodium 100 MG Cap PO SCH ×2 (09:28→20:00)
[2023-08-29] MEDS: Acetaminophen 500 MG Tab PO PRN (19:51)
[2023-08-30] MEDS: Acetaminophen 500 MG Tab PO PRN (03:54)
[2023-08-30 08:30] VITALS: BP 128/91; PULSE 76
[2023-08-30] MEDS: Docusate Sodium 100 MG Cap PO SCH (08:30)
[2023-08-30] MEDS: Prenatal Multivitamin with Calcium/Folic Acid/Iron Tab PO SCH (08:30)
== END 2023-08-30 10:45 | disposition home or self-care (01) | DRG 540 ==
LOC: MW.OBCHECK 05:32 → MW.OB 05:33 → MW.OBCHECK 05:35 → OBSVTOIN 05:40 → MW.OB 11:19
PROVIDERS: ADMIT Obstetrics & Gynecology; ATTEND Obstetrics & Gynecology
PROC: 10D00Z1 Extraction of Products of Conception, Low, Open Approach (ICD-10-PCS; principal; 2023-08-28 05:50)
DX: O34.211 Maternal care for low transverse scar from previous cesarean delivery (principal); Z37.0 Single live birth; Z3A.39 39 weeks gestation of pregnancy
CPT/HCPCS: 36415; 59025; 82803; 85014; 85018; 85027; 86592; 86850; 86900; 86901; A9270-GY; J0131; J0690; J1100; J1885; J2274; J2371; J2405; J2590; J2704; J2795; J3010; J3490; J7120